=== PATIENT | female | born 1965 | race African-American/Black ===

== ENCOUNTER → 2016-10-22 | Outpatient (CLI) | payer MEDICARE, MEDICAID ==
[~2016-10-22] MED LIST: ACTO15TA11 PO; ACYC-101 PO; ADVA100A INH; AMBI10TA PO; CABE0.5T PO; CALC600T13 PO; FOLI5CAP PO; HYDR200T3 PO; PRIL20CA9 PO; SPIRCAP INH; TRAZ100T4 PO; TRAZ100T6 PO; URSO250T2 PO; VENTAER INH; [UNRECOGNIZED DRUG - CODE]
[2016-10-22 16:40] LABS: HEMOGLOBIN A1b 0.9 %; HEMOGLOBIN Ao 85.7 %; HEMOGLOBIN F 0.8 %; HEMOGLOBIN LA1C 1.9 %; HEMOGLOBIN P3 3.7 %
== END ==
LOC: CLAB 12:22
PROVIDERS: ATTEND Family Medicine
DX: E11.9 Type 2 diabetes mellitus without complications (principal)
CPT/HCPCS: 36415; 83036

== ENCOUNTER → 2016-10-29 | Outpatient (CLI) | payer MEDICARE, MEDICAID ==
[2016-10-29 09:45] LABS: BASOPHIL # 0.1 TH/MM3 (0-0.2); BASOPHIL % 0.9 % (0.0-2.0); EOSINOPHIL # 0.1 TH/MM3 (0-0.4); EOSINOPHIL % 1.9 % (0.0-4.0); HEMATOCRIT 38.7 % (35.0-46.0); HEMO FLAGS DIFF FINAL; LYMPH % 39.1 % (9.0-44.0); LYMPHOCYTE # 2.2 TH/MM3 (1.0-4.8); MEAN CELL VOLUME 91.1 FL (80.0-100.0); MEAN CORPUSCULAR HEMOGLOBIN 30.2 PG (27.0-34.0); MEAN CORPUSCULAR HGB CONC 33.1 % (32.0-36.0); NEUT % 54.1 % (16.0-70.0); PLATELET COUNT 253 TH/MM3 (150-450); RED BLOOD COUNT 4.25 MIL/MM3 (4.00-5.30); RED CELL DISTRIBUTION WIDTH 13.9 % (11.6-17.2); WHITE BLOOD COUNT 5.5 TH/MM3 (4.0-11.0)
[2016-10-29 10:24] LABS: ALKALINE PHOSPHATASE 81 U/L (45-117); ALT (GPT) 17 U/L (10-53); ANION GAP 5 MEQ/L (5-15); AST (GOT) 17 U/L (15-37); BICARBONATE 28.7 MEQ/L (21.0-32.0); BLOOD UREA NITROGEN 14 MG/DL (7-18); CHLORIDE 106 MEQ/L (98-107); GLOMERULAR FILTRATION RATE 62 ML/MIN (>89); GLUCOSE,FASTING 71 MG/DL (74-99); POTASSIUM 3.9 MEQ/L (3.5-5.1); SODIUM (NA) 140 MEQ/L (136-145); TOTAL BILIRUBIN ADULT 0.2 MG/DL (0.2-1.0)
[2016-10-29 10:24] LABS: WESTERGREN SEDIMENTATION RATE 42 mm/hr (0-30)
== END ==
LOC: CLAB 08:54
PROVIDERS: ATTEND Allergy & Immunology
DX: D84.9 Immunodeficiency, unspecified (principal); Z79.899 Other long term (current) drug therapy
CPT/HCPCS: 36415; 80053; 85025; 85652; 86140

== ENCOUNTER → 2016-11-16 | Outpatient (CLI) | payer MEDICARE, MEDICAID ==
[2016-11-16 11:36] LABS: ALT (GPT) 17 U/L (10-53); ANION GAP 7 MEQ/L (5-15); AST (GOT) 9 U/L (15-37); BICARBONATE 26.7 MEQ/L (21.0-32.0); BLOOD UREA NITROGEN 8 MG/DL (7-18); CHLORIDE 107 MEQ/L (98-107); GLOMERULAR FILTRATION RATE 84 ML/MIN (>89); GLUCOSE,FASTING 87 MG/DL (74-99); POTASSIUM 3.6 MEQ/L (3.5-5.1); SODIUM (NA) 141 MEQ/L (136-145)
[2016-11-16 11:46] LABS: ALKALINE PHOSPHATASE 76 U/L (45-117); TOTAL BILIRUBIN ADULT 0.2 MG/DL (0.2-1.0)
== END ==
LOC: CLAB 10:51
PROVIDERS: ATTEND Family Medicine
DX: E22.1 Hyperprolactinemia (principal); E04.1 Nontoxic single thyroid nodule
CPT/HCPCS: 36415; 80053; 84146; 84443

== ENCOUNTER → 2017-04-14 | Outpatient (CLI) | payer MEDICARE, MEDICAID ==
[~2017-04-14] MED LIST changes: +OMEP20CA2 PO; -PRIL20CA9 PO; -TRAZ100T4 PO
[2017-04-14 10:28] LABS: AUTOMATED NEUTROPHIL # 2.8 TH/MM3 (1.8-7.7); BASOPHIL % 0.7 % (0.0-2.0); EOSINOPHIL # 0.1 TH/MM3 (0-0.4); EOSINOPHIL % 1.8 % (0.0-4.0); HEMATOCRIT 38.6 % (35.0-46.0); HEMO FLAGS DIFF FINAL; LYMPH % 45.5 % (9.0-44.0); LYMPHOCYTE # 2.6 TH/MM3 (1.0-4.8); MEAN CELL VOLUME 89.7 FL (80.0-100.0); MEAN CORPUSCULAR HEMOGLOBIN 29.8 PG (27.0-34.0); MEAN CORPUSCULAR HGB CONC 33.2 % (32.0-36.0); MONO % 3.8 % (0.0-8.0); NEUT % 48.2 % (16.0-70.0); PLATELET COUNT 268 TH/MM3 (150-450); RED CELL DISTRIBUTION WIDTH 13.6 % (11.6-17.2); WHITE BLOOD COUNT 5.8 TH/MM3 (4.0-11.0)
[2017-04-14 10:47] LABS: ANION GAP 8 MEQ/L (5-15); AST (GOT) 9 U/L (15-37); BICARBONATE 26.3 MEQ/L (21.0-32.0); BLOOD UREA NITROGEN 13 MG/DL (7-18); CHLORIDE 108 MEQ/L (98-107); GLOMERULAR FILTRATION RATE 97 ML/MIN (>89); GLUCOSE,FASTING 96 MG/DL (74-99); POTASSIUM 3.7 MEQ/L (3.5-5.1); SODIUM (NA) 142 MEQ/L (136-145)
[2017-04-14 10:51] LABS: ALKALINE PHOSPHATASE 75 U/L (45-117); ALT (GPT) 19 U/L (10-53); TOTAL BILIRUBIN ADULT 0.3 MG/DL (0.2-1.0)
== END ==
LOC: CLAB 09:56
PROVIDERS: ATTEND Internal Medicine Gastroenterology
DX: K74.3 Primary biliary cirrhosis (principal)
CPT/HCPCS: 36415; 80053; 85025

== ENCOUNTER → 2017-04-26 | Outpatient (CLI) | payer MEDICARE, MEDICAID ==
[2017-04-26 11:02] LABS: AUTOMATED NEUTROPHIL # 3.8 TH/MM3 (1.8-7.7); BASOPHIL % 0.7 % (0.0-2.0); EOSINOPHIL # 0.1 TH/MM3 (0-0.4); EOSINOPHIL % 1.3 % (0.0-4.0); HEMATOCRIT 37.7 % (35.0-46.0); HEMO FLAGS DIFF FINAL; LYMPH % 34.2 % (9.0-44.0); LYMPHOCYTE # 2.2 TH/MM3 (1.0-4.8); MEAN CELL VOLUME 91.1 FL (80.0-100.0); MEAN CORPUSCULAR HEMOGLOBIN 30.4 PG (27.0-34.0); MEAN CORPUSCULAR HGB CONC 33.3 % (32.0-36.0); NEUT % 59.8 % (16.0-70.0); PLATELET COUNT 248 TH/MM3 (150-450); RED BLOOD COUNT 4.14 MIL/MM3 (4.00-5.30); RED CELL DISTRIBUTION WIDTH 13.8 % (11.6-17.2); WHITE BLOOD COUNT 6.4 TH/MM3 (4.0-11.0)
[2017-04-26 11:26] LABS: ANION GAP 5 MEQ/L (5-15); AST (GOT) 12 U/L (15-37); BICARBONATE 27.7 MEQ/L (21.0-32.0); BLOOD UREA NITROGEN 9 MG/DL (7-18); CHLORIDE 106 MEQ/L (98-107); GLOMERULAR FILTRATION RATE 91 ML/MIN (>89); GLUCOSE,FASTING 97 MG/DL (74-99); POTASSIUM 3.4 MEQ/L (3.5-5.1); SODIUM (NA) 139 MEQ/L (136-145)
[2017-04-26 11:29] LABS: ALKALINE PHOSPHATASE 80 U/L (45-117); ALT (GPT) 21 U/L (10-53); TOTAL BILIRUBIN ADULT 0.3 MG/DL (0.2-1.0)
[2017-04-26 12:51] LABS: WESTERGREN SEDIMENTATION RATE 28 mm/hr (0-30)
[2017-04-28 13:02] LABS: ANA SCREEN POS (NEG)
== END ==
LOC: CLAB 10:29
PROVIDERS: ATTEND Allergy & Immunology
DX: R76.8 Other specified abnormal immunological findings in serum (principal); D82.8 Immunodeficiency associated with other specified major defects
CPT/HCPCS: 36415; 80053; 85025; 85652; 86038; 86039; 86140; 86225

== ENCOUNTER 2017-05-22 14:57 | Emergency (ER) | payer MEDICARE, MEDICAID ==
[~2017-05-22] VITALS: Ht 175.3 cm; Wt 100.0 kg
[2017-05-22 15:10] VITALS: BP 145/67; PULSE 84; RESP 15; TEMP 98.4; O2SAT 98
[2017-05-22] MEDS ORDERED: MORPHINE SULFATE 4 MG/ML INJ IV PUSH ONE (15:30)
[2017-05-22] MEDS ORDERED: ONDANSETRON HCL 4 MG/2 ML VIAL IV PUSH ONE (15:30)
--- NOTE | 2017-05-22 16:12 | RADRPT ---
EXAM DATE/TIME: 05/22/2017 15:51 [facility] COMPARISON: No previous studies available for comparison. INDICATIONS : Pain from impact to ribs by chair arm. MEDICAL HISTORY : None. SURGICAL HISTORY : None. ENCOUNTER: Initial ACUITY: 1 week PAIN SCORE: 9/10 LOCATION: Slightly lateral of left chest below sternum. FINDINGS: No definite displaced rib fractures or pneumothorax is identified. CONCLUSION: No definite displaced rib fractures. Sesar Glynn MD on May 22, 2017 at 16:10 Board Certified Radiologist. This report was verified electronically.
[2017-05-22] MEDS ORDERED: MORPHINE SULFATE 8 MG/ML INJ IM ONE (16:30)
--- NOTE | 2017-05-22 16:57 | PD ---
HPI Chief Complaint: Abdominal Pain Time Seen by Provider: 15:14 Travel History International Travel<30 days: No Contact w/Intl Traveler<30days: No Traveled to known affect area: No History of Present Illness HPI Patient is a 52-year-old female who comes in complaining of left-sided lower rib pain for the past few days. She says that it started after she fell into the post of a chair. She says she was feeling okay within the pain got worse yesterday. She has it hurts to touch the area. She denies any shortness of breath. She has not taken anything for pain. She denies nausea or vomiting. She denies fever or chills. PFSH Past Medical History Anemia: Yes Arthritis: Yes Asthma: No Autoimmune Disease: No Blood Disorders: No Anxiety: Yes Depression: No Heart Rhythm Problems: No Cancer: No Cardiovascular Problems: Yes High Cholesterol: Yes Chest Pain: Yes Congestive Heart Failure: No Cirrhosis: Yes COPD: Yes Cerebrovascular Accident: No Diabetes: No Diminished Hearing: Yes (LT. 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) Hiatal Hernia: No Hypertension: No Immune Disorder: No Kidney Stones: No Musculoskeletal: Yes (R HIP REPL) Neurologic: Yes (BRAIN SURGERY) Psychiatric: No Reproductive: No Respiratory: Yes Immunizations Current: No Myocardial Infarction: No Renal Failure: No Seizures: No Sickle Cell Disease: No Sleep Apnea: No Thyroid Disease: Yes Ulcer: Yes (GASTRIC) Influenza Vaccination: Yes ?: Not Menopausal: Yes Tubal Ligation: Yes Past Surgical History Abdominal Surgery: Yes (TUBAL,1990) AICD: No Cardiac Surgery: No Ear Surgery: No Endocrine Surgery: No Eye Surgery: No Genitourinary Surgery: No Gynecologic Surgery: No Joint Replacement: Yes (RIGHT HIP 12/07, LET HIP 06/09) Neurologic Surgery: Yes (BRAIN TUMOR/SURGERY IN 2000) Oral Surgery: No Pacemaker: No Thoracic Surgery: No Other Surgery: Yes (RIGHT HIP REPLACEMENT,10/14/05,TUBAL 1990,BRAIN SURGERY( TUMOR),2001) Social History Alcohol Use: No Tobacco Use: No Substance Use: No Allergies-Medications (Allergen,Severity, Reaction): Coded Allergies: No Known Allergies (Verified , 05/22/17) Reported Meds & Prescriptions Reported Meds & Active Scripts Active Tramadol (Tramadol HCl) 50 Mg Tab 50 Mg PO Q6H PRN Ambien (Zolpidem Tartrate) 10 Mg Tab 10 Mg PO HS PRN Trazodone (Trazodone HCl) 100 Mg Tablet 250 Mg PO HS Take two and a half tablets at bedtime for insomnia. Reported Diclofenac Topical 1% Gel 1 Applic TOPICAL BID Folic Acid 1 Mg Tablet 1 Mg PO DAILY Dede 250 (Ursodiol) 250 Mg Tab 500 Mg PO BID Spiriva Handihaler (Tiotropium Inh) 18 Mcg Cap 18 Mcg INH DAILY 1 capsule = 18 mcg Review of Systems Except as stated in HPI: all other systems reviewed are Neg General / Constitutional: No: Fever, Chills HENT: No: Headaches, Lightheadedness Cardiovascular: Positive: Chest Pain or Discomfort Respiratory: No: Shortness of Breath Gastrointestinal: No: Nausea, Vomiting Musculoskeletal: Positive: Pain, No: Myalgias Skin: No Rash, No Itching Neurologic: No: Weakness, Dizziness Physical Exam Narrative GENERAL: Awake and alert, in no acute distress. SKIN: Focused skin assessment warm/dry. HEAD: Atraumatic. Normocephalic. EYES: Pupils equal and round. No scleral icterus. ENT: Mucous membranes pink and moist. NECK: Trachea midline. No JVD. CARDIOVASCULAR: Regular rate and rhythm. No murmur appreciated. Tender to palpation just under the left breast on the rib. RESPIRATORY: No accessory muscle use. Clear to auscultation. Breath sounds equal bilaterally. GASTROINTESTINAL: Abdomen soft, nondistended. Minimal tenderness to the epigastric area. No rebound or guarding. MUSCULOSKELETAL: No obvious deformities. No clubbing. No cyanosis. No edema. NEUROLOGICAL: Awake and alert. No obvious cranial nerve deficits. Motor grossly within normal limits. Normal speech. PSYCHIATRIC: Appropriate mood and affect; insight and judgment normal. Data Data Last Documented VS Vital Signs Date Time Temp Pulse Resp B/P Pulse Ox O2 Delivery O2 Flow Rate FiO2 05/22/17 15:10 98.4 84 15 145/67 98 Orders Iv Access Insert/Monitor (05/22/17 15:23) Complete Blood Count With Diff (05/22/17 15:23) Hepatic Functional Panel (05/22/17 15:23) Basic Metabolic Panel (Bmp) (05/22/17 15:23) Lipase (05/22/17 15:23) Ribs, Uni (W/Exp Cxr-Min 3vw) (05/22/17 ) Morphine Inj (Morphine Inj) (05/22/17 15:30) Ondansetron Inj (Zofran Inj) (05/22/17 15:30) Morphine Inj (Morphine Inj) (05/22/17 16:30) Electrocardiogram (05/22/17 ) Troponin I (05/22/17 16:48) Tramadol (Ultram) (05/22/17 18:15) Labs Laboratory Tests Test 05/22/17 16:40 White Blood Count 10.2 TH/MM3 Red Blood Count 4.27 MIL/MM3 Hemoglobin 13.2 GM/DL Hematocrit 39.1 % Mean Corpuscular Volume 91.6 FL Mean Corpuscular Hemoglobin 30.9 PG Mean Corpuscular Hemoglobin 33.7 % Concent Red Cell Distribution Width 13.6 % Platelet Count 306 TH/MM3 Mean Platelet Volume 8.1 FL Neutrophils (%) (Auto) 62.4 % Lymphocytes (%) (Auto) 31.9 % Monocytes (%) (Auto) 4.3 % Eosinophils (%) (Auto) 0.5 % Basophils (%) (Auto) 0.9 % Neutrophils # (Auto) 6.4 TH/MM3 Lymphocytes # (Auto) 3.3 TH/MM3 Monocytes # (Auto) 0.4 TH/MM3 Eosinophils # (Auto) 0.0 TH/MM3 Basophils # (Auto) 0.1 TH/MM3 CBC Comment DIFF FINAL Differential Comment Sodium Level 138 MEQ/L Potassium Level 3.4 MEQ/L Chloride Level 105 MEQ/L Carbon Dioxide Level 27.1 MEQ/L Anion Gap 6 MEQ/L Blood Urea Nitrogen 11 MG/DL Creatinine 0.93 MG/DL Estimat Glomerular Filtration 76 ML/MIN Rate Random Glucose 87 MG/DL Calcium Level 7.5 MG/DL Total Bilirubin 0.1 MG/DL Direct Bilirubin 0.1 MG/DL Indirect Bilirubin 0.0 MG/DL Aspartate Amino Transf 10 U/L (AST/SGOT) Alanine Aminotransferase 16 U/L (ALT/SGPT) Alkaline Phosphatase 83 U/L Troponin I LESS THAN 0.02 NG/ML Total Protein 7.8 GM/DL Albumin 3.5 GM/DL Lipase 122 U/L [facility] [place] Medical Decision Making Medical Screen Exam Complete: Yes Emergency Medical Condition: Yes Differential Diagnosis Rib fracture versus contusion versus gastritis Narrative Course Patient is a 52-year-old female comes in complaining of left-sided chest wall pain. She says it occurred after she fell onto the post of a chair. Exam shows tenderness to the left rib under her left breast. IV established while labs sent. Patient given pain medicine. Chest x-ray and rib series performed shows no evidence of displaced rib fracture. Patient signed out to Dr. Frankel to follow up testing and disposition the patient appropriately. Scripts Tramadol 50 Mg Tab50 Mg PO Q6H PRN (PAIN) #20 TAB Ref 0 Prov:Rah Frankel MD 05/22/17 Condition: Stable Linda Akhtar MD May 22, 2017 16:57
[2017-05-22 17:01] LABS: AUTOMATED NEUTROPHIL # 6.4 TH/MM3 (1.8-7.7); BASOPHIL # 0.1 TH/MM3 (0-0.2); BASOPHIL % 0.9 % (0.0-2.0); EOSINOPHIL % 0.5 % (0.0-4.0); HEMATOCRIT 39.1 % (35.0-46.0); HEMO FLAGS DIFF FINAL; LYMPH % 31.9 % (9.0-44.0); LYMPHOCYTE # 3.3 TH/MM3 (1.0-4.8); MEAN CELL VOLUME 91.6 FL (80.0-100.0); MEAN CORPUSCULAR HEMOGLOBIN 30.9 PG (27.0-34.0); MEAN CORPUSCULAR HGB CONC 33.7 % (32.0-36.0); MONO % 4.3 % (0.0-8.0); NEUT % 62.4 % (16.0-70.0); PLATELET COUNT 306 TH/MM3 (150-450); RED BLOOD COUNT 4.27 MIL/MM3 (4.00-5.30); RED CELL DISTRIBUTION WIDTH 13.6 % (11.6-17.2); WHITE BLOOD COUNT 10.2 TH/MM3 (4.0-11.0)
[2017-05-22] MEDS ORDERED: DICL1GEL7 TOPICAL (17:11)
[2017-05-22] MEDS ORDERED: FOLI1TAB6 PO (17:11)
[2017-05-22 17:27] LABS: BICARBONATE 27.1 MEQ/L (21.0-32.0); POTASSIUM 3.4 MEQ/L (3.5-5.1)
[2017-05-22 17:30] LABS: TOTAL BILIRUBIN ADULT 0.1 MG/DL (0.2-1.0)
[2017-05-22] MEDS ORDERED: TRAM50TA PO (18:15)
[2017-05-22] MEDS ORDERED: traMADol HCL 50 MG TAB PO ONE (18:15)
--- NOTE | 2017-05-22 18:17 | PD ---
Data Data Last Documented VS Vital Signs Date Time Temp Pulse Resp B/P Pulse Ox O2 Delivery O2 Flow Rate FiO2 05/22/17 15:10 98.4 84 15 145/67 98 Orders Iv Access Insert/Monitor (05/22/17 15:23) Complete Blood Count With Diff (05/22/17 15:23) Hepatic Functional Panel (05/22/17 15:23) Basic Metabolic Panel (Bmp) (05/22/17 15:23) Lipase (05/22/17 15:23) Ribs, Uni (W/Exp Cxr-Min 3vw) (05/22/17 ) Morphine Inj (Morphine Inj) (05/22/17 15:30) Ondansetron Inj (Zofran Inj) (05/22/17 15:30) Morphine Inj (Morphine Inj) (05/22/17 16:30) Electrocardiogram (05/22/17 ) Troponin I (05/22/17 16:48) Tramadol (Ultram) (05/22/17 18:15) Labs Laboratory Tests Test 05/22/17 16:40 White Blood Count 10.2 TH/MM3 Red Blood Count 4.27 MIL/MM3 Hemoglobin 13.2 GM/DL Hematocrit 39.1 % Mean Corpuscular Volume 91.6 FL Mean Corpuscular Hemoglobin 30.9 PG Mean Corpuscular Hemoglobin 33.7 % Concent Red Cell Distribution Width 13.6 % Platelet Count 306 TH/MM3 Mean Platelet Volume 8.1 FL Neutrophils (%) (Auto) 62.4 % Lymphocytes (%) (Auto) 31.9 % Monocytes (%) (Auto) 4.3 % Eosinophils (%) (Auto) 0.5 % Basophils (%) (Auto) 0.9 % Neutrophils # (Auto) 6.4 TH/MM3 Lymphocytes # (Auto) 3.3 TH/MM3 Monocytes # (Auto) 0.4 TH/MM3 Eosinophils # (Auto) 0.0 TH/MM3 Basophils # (Auto) 0.1 TH/MM3 CBC Comment DIFF FINAL Differential Comment Sodium Level 138 MEQ/L Potassium Level 3.4 MEQ/L Chloride Level 105 MEQ/L Carbon Dioxide Level 27.1 MEQ/L Anion Gap 6 MEQ/L Blood Urea Nitrogen 11 MG/DL Creatinine 0.93 MG/DL Estimat Glomerular Filtration 76 ML/MIN Rate Random Glucose 87 MG/DL Calcium Level 7.5 MG/DL Total Bilirubin 0.1 MG/DL Direct Bilirubin 0.1 MG/DL Indirect Bilirubin 0.0 MG/DL Aspartate Amino Transf 10 U/L (AST/SGOT) Alanine Aminotransferase 16 U/L (ALT/SGPT) Alkaline Phosphatase 83 U/L Troponin I LESS THAN 0.02 NG/ML Total Protein 7.8 GM/DL Albumin 3.5 GM/DL Lipase 122 U/L [facility] Supervised Visit with VIRY: No Narrative Course Case checked out to be by Dr. Vela at 5 PM. I reevaluated the patient and reviewed the entirety of the results with her CBC and metabolic studies and LFTs and troponin all normal I reviewed her x-rays which showed no rib fracture or pneumothorax Dr. Vela recommended discharge if the labs were normal. I gave her a tramadol dose now and prescription for same Warned her about potential sedation and constipation The patient was advised to follow up with their physician and return if they worsen. Diagnosis Primary Impression: Rib pain Additional Instruction: The patient was advised to follow up with their physician and return if they worsen. The patient was warned about potential sedation for the medications they will receive on prescription. Med/Other Pt SpecificInfo: Prescription(s) given Scripts Tramadol 50 Mg Tab50 Mg PO Q6H PRN (PAIN) #20 TAB Ref 0 Prov:Rah Frankel MD 05/22/17 Disposition: 01 DISCHARGE HOME Condition: Stable Rah Frankel MD May 22, 2017 18:17
--- NOTE | 2017-05-23 15:24 | EKG ---
Date Performed: 05/22/2017 Time Performed: 16:57:42 PTAGE: 52 years EKG: Sinus rhythm NORMAL ECG Since PREVIOUS TRACING , no significant change noted PREVIOUS TRACIN08/29/2014 13.15 DOCTOR: Roosevelt Portillo Interpretating Date/Time 05/23/2017 15:22:45
[2017-07-01] MEDS ORDERED: HYDR200T3 PO (16:15)
[2017-07-01] MEDS ORDERED: ACYC800T PO (16:15)
== END 2017-05-22 19:03 | disposition home or self-care (01) ==
LOC: NEPD 14:57
DX: R07.81 Pleurodynia (principal); W18.39XA Other fall on same level, initial encounter
CPT/HCPCS: 71101; 80048; 80076; 83690; 84484; 85025; 93005; 96372; 99285; J2270

== ENCOUNTER → 2017-06-02 | Outpatient (CLI) | payer MEDICARE, MEDICAID ==
[~2017-06-02] MED LIST changes: -ACTO15TA11 PO; -ACYC-101 PO; +ACYC800T PO; -ADVA100A INH; -CABE0.5T PO; -CALC600T13 PO; +DICL1GEL7 TOPICAL; +FOLI1TAB6 PO; -FOLI5CAP PO; -OMEP20CA2 PO; +TRAM50TA PO; -VENTAER INH; -[UNRECOGNIZED DRUG - CODE]
[2017-06-02 09:51] LABS: ALT (GPT) 19 U/L (10-53)
[2017-06-02 09:55] LABS: ANION GAP 8 MEQ/L (5-15); AST (GOT) 22 U/L (15-37); BICARBONATE 28.3 MEQ/L (21.0-32.0); BLOOD UREA NITROGEN 8 MG/DL (7-18); CHLORIDE 104 MEQ/L (98-107); GLOMERULAR FILTRATION RATE 85 ML/MIN (>89); GLUCOSE,FASTING 98 MG/DL (74-99); POTASSIUM 3.8 MEQ/L (3.5-5.1); SODIUM (NA) 140 MEQ/L (136-145)
[2017-06-02 10:01] LABS: ALKALINE PHOSPHATASE 89 U/L (45-117); TOTAL BILIRUBIN ADULT 0.3 MG/DL (0.2-1.0)
[2017-06-02 10:23] LABS: HEMOGLOBIN A1b 0.9 %; HEMOGLOBIN Ao 85.4 %; HEMOGLOBIN F 0.9 %; HEMOGLOBIN LA1C 1.9 %; HEMOGLOBIN P3 3.6 %
== END ==
LOC: CLAB 08:47
PROVIDERS: ATTEND Internal Medicine Endocrinology, Diabetes & Metabolism
DX: E22.1 Hyperprolactinemia (principal); R73.01 Impaired fasting glucose
CPT/HCPCS: 36415; 80053; 83036; 84146; 84443

== ENCOUNTER → 2017-06-29 | Outpatient (CLI) | payer MEDICARE, MEDICAID ==
[2017-06-29 13:09] LABS: AUTOMATED NEUTROPHIL # 3.1 TH/MM3 (1.8-7.7); BASOPHIL % 0.7 % (0.0-2.0); EOSINOPHIL # 0.1 TH/MM3 (0-0.4); EOSINOPHIL % 1.1 % (0.0-4.0); HEMATOCRIT 38.1 % (35.0-46.0); HEMO FLAGS DIFF FINAL; LYMPH % 40.8 % (9.0-44.0); LYMPHOCYTE # 2.3 TH/MM3 (1.0-4.8); MEAN CELL VOLUME 91.1 FL (80.0-100.0); MEAN CORPUSCULAR HEMOGLOBIN 30.8 PG (27.0-34.0); MEAN CORPUSCULAR HGB CONC 33.8 % (32.0-36.0); NEUT % 54.4 % (16.0-70.0); PLATELET COUNT 287 TH/MM3 (150-450); RED BLOOD COUNT 4.18 MIL/MM3 (4.00-5.30); RED CELL DISTRIBUTION WIDTH 13.4 % (11.6-17.2); WHITE BLOOD COUNT 5.7 TH/MM3 (4.0-11.0)
[2017-06-29 13:21] LABS: PROTHROMBIN TIME - PATIENT 10.6 SEC (9.8-11.6)
[2017-06-29 13:33] LABS: BICARBONATE 29.8 MEQ/L (21.0-32.0); POTASSIUM 3.4 MEQ/L (3.5-5.1)
== END ==
LOC: CLAB 12:46
PROVIDERS: ATTEND Podiatrist Foot & Ankle Surgery
DX: M72.2 Plantar fascial fibromatosis (principal); D68.9 Coagulation defect, unspecified
CPT/HCPCS: 36415; 80048; 85025; 85610; 85730

== ENCOUNTER → 2017-08-04 | Outpatient (CLI) | payer MEDICARE, MEDICAID ==
[2017-08-04 09:55] LABS: AUTOMATED NEUTROPHIL # 3.5 TH/MM3 (1.8-7.7); BASOPHIL % 0.8 % (0.0-2.0); EOSINOPHIL # 0.1 TH/MM3 (0-0.4); EOSINOPHIL % 1.1 % (0.0-4.0); HEMOGLOBIN 12.7 GM/DL (11.6-15.3); LYMPHOCYTE # 2.5 TH/MM3 (1.0-4.8); MEAN CELL VOLUME 92.1 FL (80.0-100.0); MEAN CORPUSCULAR HEMOGLOBIN 30.9 PG (27.0-34.0); MEAN CORPUSCULAR HGB CONC 33.6 % (32.0-36.0); MEAN PLATELET VOLUME 7.8 FL (7.0-11.0); MONO % 3.9 % (0.0-8.0); MONOCYTE # 0.2 TH/MM3 (0-0.9); NEUT % 55.2 % (16.0-70.0); PLATELET COUNT 269 TH/MM3 (150-450); RED BLOOD COUNT 4.12 MIL/MM3 (4.00-5.30); RED CELL DISTRIBUTION WIDTH 13.5 % (11.6-17.2); WHITE BLOOD COUNT 6.4 TH/MM3 (4.0-11.0)
[2017-08-04 10:45] LABS: ALBUMIN 3.3 GM/DL (3.4-5.0); AST (GOT) 12 U/L (15-37); BLOOD UREA NITROGEN 8 MG/DL (7-18); CALCIUM 8.4 MG/DL (8.5-10.1); CHLORIDE 104 MEQ/L (98-107); CREATININE 0.82 MG/DL (0.50-1.00); GLOMERULAR FILTRATION RATE 88 ML/MIN (>89); GLUCOSE,FASTING 95 MG/DL (74-99); SODIUM (NA) 140 MEQ/L (136-145)
[2017-08-04 10:47] LABS: ALT (GPT) 17 U/L (10-53)
[2017-08-04 10:48] LABS: ALKALINE PHOSPHATASE 82 U/L (45-117); TOTAL BILIRUBIN ADULT 0.2 MG/DL (0.2-1.0); TOTAL PROTEIN 7.4 GM/DL (6.4-8.2)
[2017-08-06 13:53] LABS: SJOGRENS ANTIBODY SS-A >8.0 POS AI (<1.0 NEGATIVE); SJOGRENS ANTIBODY SS-B <1.0 NEG AI (<1.0 NEGATIVE)
[2017-08-06 14:37] LABS: ANA SCREEN POS (NEG)
[2017-08-09 13:00] LABS: ANA PATTERN DIFFUSE
== END ==
LOC: CLAB 09:16
PROVIDERS: ATTEND Allergy & Immunology
DX: R76.8 Other specified abnormal immunological findings in serum (principal); R79.82 Elevated C-reactive protein (CRP)
CPT/HCPCS: 36415; 80053; 85025; 86038; 86039; 86140; 86235

== ENCOUNTER → 2017-08-18 | Outpatient (CLI) | payer MEDICARE, MEDICAID ==
[~2017-08-18] MED LIST changes: +TRAZ100T10 PO; -TRAZ100T6 PO
[2017-08-18 12:14] LABS: TOTAL BILIRUBIN ADULT 0.1 MG/DL (0.2-1.0)
== END ==
LOC: CLAB 11:31
PROVIDERS: ATTEND Internal Medicine Gastroenterology
DX: K74.60 Unspecified cirrhosis of liver (principal)
CPT/HCPCS: 36415; 80076; 82105

== ENCOUNTER → 2017-11-08 | Outpatient (CLI) | payer MEDICARE | LOC: HRSP 12:12 | PROVIDERS: ATTEND Internal Medicine | DX: J44.9 Chronic obstructive pulmonary disease, unspecified (principal); R06.02 Shortness of breath | CPT/HCPCS: 94060; 94618; 94726; 94729 ==

== ENCOUNTER → 2017-11-29 | Outpatient (CLI) | payer MEDICARE ==
[~2017-11-29] MED LIST changes: +ADVA250A INH; +CALC1TAB87 PO; +OMEP20TA93 PO; +PRED20 PO
[2017-11-29 10:41] LABS: ALBUMIN 3.4 GM/DL (3.4-5.0); AST (GOT) 10 U/L (15-37); BICARBONATE 29.1 MEQ/L (21.0-32.0); BLOOD UREA NITROGEN 11 MG/DL (7-18); CALCIUM 8.8 MG/DL (8.5-10.1); CHLORIDE 106 MEQ/L (98-107); CREATININE 0.76 MG/DL (0.50-1.00); GLOMERULAR FILTRATION RATE 96 ML/MIN (>89); GLUCOSE,FASTING 92 MG/DL (74-99); SODIUM (NA) 141 MEQ/L (136-145)
[2017-11-29 10:52] LABS: ALKALINE PHOSPHATASE 85 U/L (45-117); ALT (GPT) 14 U/L (10-53); FREE T4 0.93 NG/DL (0.76-1.46); TOTAL BILIRUBIN ADULT 0.2 MG/DL (0.2-1.0); TOTAL PROTEIN 7.5 GM/DL (6.4-8.2)
[2017-11-29 16:34] LABS: HEMOGLOBIN A1C 5.6 % (4.3-6.0)
== END ==
LOC: CLAB 09:32
DX: E22.1 Hyperprolactinemia (principal); R73.01 Impaired fasting glucose; E04.1 Nontoxic single thyroid nodule
CPT/HCPCS: 36415; 80053; 83036; 84146; 84439; 84443

== ENCOUNTER 2017-12-01 11:25 | Emergency (ER) | payer MEDICAID, MEDICARE ==
[~2017-12-01] VITALS: Ht 175.3 cm; Wt 96.0 kg
[~2017-12-01 11:25] MED LIST changes: -ADVA250A INH; -CALC1TAB87 PO; -OMEP20TA93 PO; -PRED20 PO
[2017-12-01 11:38] VITALS: BP 134/68; PULSE 87; RESP 17; TEMP 98.1; O2SAT 98
[2017-12-01] MEDS ORDERED: traMADol HCL 50 MG TAB PO ONE (12:00)
[2017-12-01] MEDS ORDERED: predniSONE 20 MG TAB PO ONE (12:00)
[2017-12-01] MEDS ORDERED: ADVA250A INH (12:16)
[2017-12-01] MEDS ORDERED: CALC1TAB87 PO (12:16)
[2017-12-01] MEDS ORDERED: OMEP20TA93 PO (12:16)
--- NOTE | 2017-12-01 12:34 | RADRPT ---
EXAM DATE/TIME: 12/01/2017 11:56 [facility] COMPARISON: RIBS LEFT(W PA CXR MIN 3VWS), May 22, 2017, 15:51. INDICATIONS : Left shoulder pain, no injury. MEDICAL HISTORY : None. SURGICAL HISTORY : None. ENCOUNTER: Initial ACUITY: 1 day PAIN SCORE: 10/10 LOCATION: Left proximal shoulder FINDINGS: Multiple view examination of the left shoulder demonstrates significant arthropathy of the acromiocla vicular joint. There is marginal irregularity along the articulating surface and marginal spurring. T his appearance was noted on previous study at 2017. Glenohumeral joint is intact. There is no evidence of acute fracture or dislocation. CONCLUSION: Chronic arthropathy of the left acromioclavicular joint. Otherwise intact left shoulder joint without evidence of acute process. Khoa Batista MD on December 01, 2017 at 12:29 Board Certified Radiologist. This report was verified electronically.
--- NOTE | 2017-12-01 12:36 | PD ---
HPI Chief Complaint: Musculoskeletal Complaint Time Seen by Provider: 11:43 Travel History International Travel<30 days: No Contact w/Intl Traveler<30days: No Traveled to known affect area: No History of Present Illness HPI 52-year-old -[place] left-handed female presents emergency department with worsening left shoulder pain in the last 2 days. Patient has history of recurrent shoulder pain in the past with workup done here in 2016. Patient states she was also workup at [facility], and had steroid injections with some temporary relief. Patient is left-handed, but denies any specific injury. Patient is able to move the shoulder but is painful in all ranges of motion. She denies numbness, tingling, or other symptoms. Patient has no chest pain or shortness of breath. Patient denies nausea, vomiting, or diarrhea. She has no fever or chills. Pain is worse with movement and palpation. She has no known drug allergies. PFSH Past Medical History Anemia: Yes Arthritis: Yes Asthma: No Autoimmune Disease: No Blood Disorders: No Anxiety: Yes Depression: No Heart Rhythm Problems: No Cancer: No Cardiovascular Problems: Yes High Cholesterol: Yes Chest Pain: Yes Congestive Heart Failure: No Cirrhosis: Yes COPD: Yes Cerebrovascular Accident: No Diabetes: No Diminished Hearing: Yes (LT. 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) Hiatal Hernia: No Hypertension: No Immune Disorder: No Kidney Stones: No Musculoskeletal: Yes (R HIP REPL) Neurologic: Yes (BRAIN SURGERY) Psychiatric: No Reproductive: No Respiratory: Yes Immunizations Current: No Myocardial Infarction: No Renal Failure: No Seizures: No Sickle Cell Disease: No Sleep Apnea: No Thyroid Disease: Yes Ulcer: Yes (GASTRIC) Tetanus Vaccination: Unknown Influenza Vaccination: Yes ?: Not Menopausal: Yes Tubal Ligation: Yes Past Surgical History Abdominal Surgery: Yes (TUBAL,1990) AICD: No Cardiac Surgery: No Ear Surgery: No Endocrine Surgery: No Eye Surgery: No Genitourinary Surgery: No Gynecologic Surgery: No Joint Replacement: Yes (RIGHT HIP 12/07, LET HIP 06/09) Neurologic Surgery: Yes (BRAIN TUMOR/SURGERY IN 2000) Oral Surgery: No Pacemaker: No Thoracic Surgery: No Other Surgery: Yes (RIGHT HIP REPLACEMENT,10/14/05,TUBAL 1990,BRAIN SURGERY( TUMOR),2001) Social History Alcohol Use: No Tobacco Use: No Substance Use: No Allergies-Medications (Allergen,Severity, Reaction): Coded Allergies: No Known Allergies (Verified Adverse Reaction, Unknown, 12/01/17) Reported Meds & Prescriptions Reported Meds & Active Scripts Active Acyclovir 800 Mg Tab 800 Mg PO TID Tramadol (Tramadol HCl) 50 Mg Tab 50 Mg PO Q6H PRN Ambien (Zolpidem Tartrate) 10 Mg Tab 10 Mg PO HS PRN Trazodone (Trazodone HCl) 100 Mg Tablet 250 Mg PO HS Take two and a half tablets at bedtime for insomnia. Reported Calcium 600 with Vitamin D (Calcium Carbonate-Cholecalciferol) 600-400 mg-Unit Tab 1 Tab PO DAILY Omeprazole 20 Mg Tab 20 Mg PO DAILY Advair Diskus Inh (Fluticasone-Salmeterol Inh) 250-50 Mcg/Blist Aer 1 Puff INH BID Rinse mouth after use. Hydroxychloroquine (Hydroxychloroquine Sulfate) 200 Mg Tab 200 Mg PO BID Takw with food Folic Acid 1 Mg Tablet 1 Mg PO DAILY Dede 250 (Ursodiol) 250 Mg Tab 500 Mg PO BID Spiriva Handihaler (Tiotropium Inh) 18 Mcg Cap 18 Mcg INH DAILY 1 capsule = 18 mcg Review of Systems Except as stated in HPI: all other systems reviewed are Neg General / Constitutional: No: Fever Eyes: No: Visual changes HENT: No: Headaches Cardiovascular: No: Chest Pain or Discomfort Respiratory: No: Shortness of Breath Gastrointestinal: No: Abdominal Pain Genitourinary: No: Dysuria Musculoskeletal: Positive: Arthralgias, Limited ROM, Pain Skin: No Rash Neurologic: No: Weakness Psychiatric: No: Depression Endocrine: No: Polydipsia Hematologic/Lymphatic: No: Easy Bruising Physical Exam Narrative GENERAL: Patient appears in mild distress. SKIN: Warm and dry. Normal color. Normal turgor. No rash. HEAD: Atraumatic. Normocephalic. EYES: Pupils equal and round. No scleral icterus. No injection or drainage. ENT: No nasal bleeding or discharge. Mucous membranes pink and moist. Pharynx clear. Airway patent NECK: Trachea midline. No bony tenderness or step-off. Range of motion is full and supple without tenderness per CARDIOVASCULAR: Regular rate and rhythm. RESPIRATORY: No accessory muscle use. Clear to auscultation. Breath sounds equal bilaterally. GASTROINTESTINAL: Abdomen soft, non-tender, nondistended. Hepatic and splenic margins not palpable. MUSCULOSKELETAL: Extremities without clubbing, cyanosis, or edema. No obvious deformities. Patient has full range of motion of the left shoulder with discomfort. No specific weakness is noted. No crepitus is noted with movement of the left shoulder. Pain is generalized and nonspecific. No weakness in the left upper extremity is noted NEUROLOGICAL: Awake and alert. No obvious cranial nerve deficits. Motor grossly within normal limits. Five out of 5 muscle strength in the arms and legs. Normal speech. PSYCHIATRIC: Appropriate mood and affect; insight and judgment normal. Data Data Last Documented VS Vital Signs Date Time Temp Pulse Resp B/P (MAP) Pulse Ox O2 Delivery O2 Flow Rate FiO2 12/01/17 11:38 98.1 87 17 134/68 (90) 98 Orders Orders Ice/Cold Pack (12/01/17 11:47) Prednisone (Deltasone) (12/01/17 12:00) Tramadol (Ultram) (12/01/17 12:00) Shoulder, Complete (>2vws) (12/01/17 ) [facility] Medical Decision Making Medical Screen Exam Complete: Yes Emergency Medical Condition: Yes Medical Record Reviewed: Yes Differential Diagnosis Left shoulder pain. Osteoarthritis. AC separation. Bursitis. Narrative Course Patient is medically stable at time of exam. X-ray of the left shoulder is ordered. Patient is given 40 mg prednisone p.o. as well as 50 mg tramadol p.o. X-ray showed: Chronic arthropathy of the left acromioclavicular joint. Otherwise intact left shoulder joint without evidence of acute process. Patient is continued on prednisone 40 mg twice daily 5 days. Patient is given tramadol 50 mg 1 every 6 hours as needed pain #20 Patient is to ice this and follow-up with primary care physician and possible orthopedic referral if symptoms persist. Diagnosis Primary Impression: Arthritis of left shoulder region Referrals: Orthopedist Primary Care Physician Patient Instructions: General Instructions, Osteoarthritis (ED) Additional Instructions: Patient is medically stable at time of exam. X-ray of the left shoulder is ordered. Patient is given 40 mg prednisone p.o. as well as 50 mg tramadol p.o. X-ray showed: Chronic arthropathy of the left acromioclavicular joint. Otherwise intact left shoulder joint without evidence of acute process. Patient is continued on prednisone 40 mg twice daily 5 days. Patient is given tramadol 50 mg 1 every 6 hours as needed pain #20 Patient is to ice this and follow-up with primary care physician and possible orthopedic referral if symptoms persist. Med/Other Pt SpecificInfo: Prescription(s) given Disposition: 01 DISCHARGE HOME Condition: Stable Hugh Condon Dec 01, 2017 12:36
[2017-12-01] MEDS ORDERED: TRAM50TA PO (12:37)
[2017-12-01] MEDS ORDERED: PRED20 PO (12:37)
[2017-12-02] MEDS ORDERED: CABE0.5T PO (18:39)
[2017-12-02] MEDS ORDERED: OMEP20TA93 PO (18:39)
== END 2017-12-01 13:00 | disposition home or self-care (01) ==
LOC: NEPD 11:25
DX: M19.012 Primary osteoarthritis, left shoulder (principal); E78.00 Pure hypercholesterolemia, unspecified; J44.9 Chronic obstructive pulmonary disease, unspecified
CPT/HCPCS: 73030; 99283; J7512

== ENCOUNTER 2017-12-02 17:32 | Emergency (ER) | payer MEDICAID, MEDICARE ==
[~2017-12-02] VITALS: Ht 175.3 cm; Wt 97.0 kg
[~2017-12-02 17:32] MED LIST changes: +ADVA250A INH; +CALC1TAB87 PO; +OMEP20TA93 PO; +PRED20 PO
[2017-12-02 17:51] VITALS: BP 144/63; PULSE 81; RESP 17; TEMP 97.9; O2SAT 99
[2017-12-02] MEDS ORDERED: OMEP20TA93 PO (18:39)
[2017-12-02] MEDS ORDERED: CABE0.5T PO (18:39)
[2017-12-02 18:40] VITALS: BP 138/65; PULSE 83; RESP 20; O2SAT 99
[2017-12-02 19:08] VITALS: BP 136/67; PULSE 82; RESP 18; O2SAT 98
[2017-12-02 19:09] VITALS: RESP 18; O2SAT 98
--- NOTE | 2017-12-02 19:11 | PD ---
HPI Chief Complaint: Respiratory Symptoms Time Seen by Provider: 18:55 Travel History International Travel<30 days: No Contact w/Intl Traveler<30days: No Traveled to known affect area: No History of Present Illness HPI 52-year-old female presents to the emergency department, sent by her primary care physician, Dr. Angel, for evaluation of left pleuritic chest pain. Patient states it is his specific area in her left upper chest. She states this started yesterday. It is worse with deep breathing and movement. Patient states that her physician sent her to rule out a PE since it is pleuritic. She denies any new leg swelling. No marked distress. No recent travel or surgery. She denies any history of DVT or PE. Patient denies any cardiac history. Patient denies any fevers or chills. No cough or congestion. Current pain is 7 /10 without radiation. Exacerbating factors movement, deep breathing. Alleviating factor is lying still. Moderate severity. PFSH Past Medical History Anemia: Yes Arthritis: Yes Asthma: No Autoimmune Disease: No Blood Disorders: No Anxiety: Yes Depression: No Heart Rhythm Problems: No Cancer: No Cardiovascular Problems: Yes High Cholesterol: Yes Chest Pain: Yes Congestive Heart Failure: No Cirrhosis: Yes COPD: Yes Cerebrovascular Accident: No Diabetes: No Diminished Hearing: Yes (LT. 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) Hiatal Hernia: No Hypertension: No Immune Disorder: No Kidney Stones: No Musculoskeletal: Yes (R HIP REPL) Neurologic: Yes (BRAIN SURGERY) Psychiatric: No Reproductive: No Respiratory: Yes Immunizations Current: No Myocardial Infarction: No Renal Failure: No Seizures: No Sickle Cell Disease: No Sleep Apnea: No Thyroid Disease: Yes Ulcer: Yes (GASTRIC) Tetanus Vaccination: < 5 Years Influenza Vaccination: Yes ?: Not Menopausal: Yes Tubal Ligation: Yes Past Surgical History Abdominal Surgery: Yes (TUBAL,1990) AICD: No Cardiac Surgery: No Ear Surgery: No Endocrine Surgery: No Eye Surgery: No Genitourinary Surgery: No Gynecologic Surgery: No Joint Replacement: Yes (RIGHT HIP 12/07, LEFT HIP 06/09) Neurologic Surgery: Yes (BRAIN TUMOR/SURGERY IN 2000) Oral Surgery: No Pacemaker: No Thoracic Surgery: No Other Surgery: Yes (RIGHT HIP REPLACEMENT,10/14/05,TUBAL 1990,BRAIN SURGERY( TUMOR),2001) Social History Alcohol Use: No Tobacco Use: No Substance Use: No Allergies-Medications (Allergen,Severity, Reaction): Coded Allergies: No Known Allergies (Verified Adverse Reaction, Unknown, 12/02/17) Reported Meds & Prescriptions Reported Meds & Active Scripts Active Tramadol (Tramadol HCl) 50 Mg Tab 50 Mg PO Q6H PRN Acyclovir 800 Mg Tab 800 Mg PO TID Ambien (Zolpidem Tartrate) 10 Mg Tab 10 Mg PO HS PRN Trazodone (Trazodone HCl) 100 Mg Tablet 250 Mg PO HS Take two and a half tablets at bedtime for insomnia. Reported Cabergoline 0.5 Mg Tab 0.5 Mg PO WEEKLY Omeprazole 20 Mg Tab 20 Mg PO BID Calcium 600 with Vitamin D (Calcium Carbonate-Cholecalciferol) 600-400 mg-Unit Tab 1 Tab PO DAILY Advair Diskus Inh (Fluticasone-Salmeterol Inh) 250-50 Mcg/Blist Aer 1 Puff INH BID Rinse mouth after use. Hydroxychloroquine (Hydroxychloroquine Sulfate) 200 Mg Tab 200 Mg PO BID Takw with food Folic Acid 1 Mg Tablet 1 Mg PO DAILY Dede 250 (Ursodiol) 250 Mg Tab 500 Mg PO BID Spiriva Handihaler (Tiotropium Inh) 18 Mcg Cap 18 Mcg INH DAILY 1 capsule = 18 mcg Review of Systems Except as stated in HPI: all other systems reviewed are Neg Physical Exam Narrative GENERAL: Well-nourished, well-developed female patient, ambulatory. Afebrile. SKIN: Focused skin assessment warm/dry. HEAD: Normocephalic. Atraumatic. EYES: No scleral icterus. No injection or drainage. NECK: Supple, trachea midline. No JVD or lymphadenopathy. CARDIOVASCULAR: Regular rate and rhythm without murmurs, gallops, or rubs. Bilateral radial and pedal pulses are 2+. RESPIRATORY: Breath sounds equal bilaterally. No accessory muscle use. Lungs sounds are clear to auscultation. GASTROINTESTINAL: Abdomen soft, non-tender, nondistended. MUSCULOSKELETAL: No cyanosis, or edema. Area where patient states her chest pain is easily reproduced with palpation. BACK: Nontender without obvious deformity. No CVA tenderness. Data Data Last Documented VS Vital Signs Date Time Temp Pulse Resp B/P (MAP) Pulse Ox O2 Delivery O2 Flow Rate FiO2 12/02/17 19:09 18 98 Room Air 12/02/17 19:08 82 12/02/17 17:51 97.9 Orders Orders Electrocardiogram (12/02/17 19:04) Basic Metabolic Panel (Bmp) (12/02/17 19:04) Ckmb (Isoenzyme) Profile (12/02/17 19:04) Complete Blood Count With Diff (12/02/17:) D-Dimer (12/02/17:04) Magnesium (Mg) (12/02/17 19:04) Prothrombin Time / Inr (Pt) (12/02/17:04) Act Partial Throm Time (Ptt) (12/02/17:) Troponin I (12/02/17:04) Chest, Single Ap (12/02/17:04) Ecg Monitoring (12/02/17 19:04) Bilateral Bp Monitoring (12/02/17:04) Iv Access Insert/Monitor (12/02/17:) Oximetry (12/02/17:04) Oxygen Administration (12/02/17 19:04) Sodium Chloride 0.9% Flush (Ns Flush) (12/02/17 19:15) Potassium Chloride (Kcl) (12/02/17 21:00) Labs Laboratory Tests Test 12/02/17 19:30 White Blood Count 11.6 TH/MM3 Red Blood Count 4.32 MIL/MM3 Hemoglobin 13.0 GM/DL Hematocrit 39.1 % Mean Corpuscular Volume 90.4 FL Mean Corpuscular Hemoglobin 30.0 PG Mean Corpuscular Hemoglobin Concent 33.2 % Red Cell Distribution Width 13.3 % Platelet Count 323 TH/MM3 Mean Platelet Volume 7.9 FL Neutrophils (%) (Auto) 59.1 % Lymphocytes (%) (Auto) 36.8 % Monocytes (%) (Auto) 3.1 % Eosinophils (%) (Auto) 0.2 % Basophils (%) (Auto) 0.8 % Neutrophils # (Auto) 6.9 TH/MM3 Lymphocytes # (Auto) 4.3 TH/MM3 Monocytes # (Auto) 0.4 TH/MM3 Eosinophils # (Auto) 0.0 TH/MM3 Basophils # (Auto) 0.1 TH/MM3 CBC Comment DIFF FINAL Differential Comment Prothrombin Time 10.5 SEC Prothromb Time International Ratio 1.0 RATIO Activated Partial Thromboplast Time 24.3 SEC D-Dimer Quantitative (PE/DVT) 0.25 MG/L FEU Blood Urea Nitrogen 10 MG/DL Creatinine 0.93 MG/DL Random Glucose 96 MG/DL Calcium Level 8.9 MG/DL Magnesium Level 2.0 MG/DL Sodium Level 139 MEQ/L Potassium Level 3.0 MEQ/L Chloride Level 103 MEQ/L Carbon Dioxide Level 28.0 MEQ/L Anion Gap 8 MEQ/L Estimat Glomerular Filtration Rate 76 ML/MIN Total Creatine Kinase 62 U/L Troponin I LESS THAN 0.02 NG/ML MDM Medical Decision Making Medical Screen Exam Complete: Yes Emergency Medical Condition: Yes Medical Record Reviewed: Yes Interpretation(s) chest x-ray - CONCLUSION: No acute disease. Differential Diagnosis Chest wall pain versus muscle strain versus ACS versus PE Narrative Course 52-year-old female presents to the emergency department reporting left-sided pleuritic chest pain that is worse with palpation and movement. This pain is easily reproduced on palpation. Patient was sent by primary care physician to rule out PE. EKG, CBC, BMP, CK, troponin, magnesium, PTT, PT/INR, d-dimer, chest x-ray are ordered and pending. Patient states she cannot have aspirin due to ulcer.. EKG shows SR, HR 81, no acute ST changes. CBC shows leukocytosis of 11.6. BMP shows hypokalemia of 3.0. CK is 62. Troponin is less than 0.02. Magnesium is 2.0. Coags are unremarkable. D-dimer is 0.25. Chest x-ray shows no acute disease. Patient is given potassium 40 mEq by mouth for hypokalemia. Symptoms and physical are consistent with muscle strain. Patient was seen a couple days ago for left shoulder pain. This is consistent with musculoskeletal pain, probably from left shoulder. I discussed discharge the patient feels comfortable going home. Patient is to follow-up with her primary care physician. She is return here for any acute worsening of symptoms. The patient was discharged in stable condition with instructions, including return instructions and follow up instructions. Diagnosis Primary Impression: Chest wall pain Referrals: Primary Care Physician call for appointment Patient Instructions: Chest Wall Pain (ED), General Instructions Additional Instructions: Follow-up with your primary care physician. Return to the emergency department for any acute worsening of symptoms. Med/Other Pt SpecificInfo: No Change to Meds Disposition: 01 DISCHARGE HOME Condition: Stable Kika Early Dec 02, 2017 19:11
[2017-12-02] MEDS ORDERED: SODIUM CHLORIDE 0.9% FLUSH 10 ML FLUSH IVF PRN (19:15)
[2017-12-02 20:04] LABS: AUTOMATED NEUTROPHIL # 6.9 TH/MM3 (1.8-7.7); BASOPHIL # 0.1 TH/MM3 (0-0.2); BASOPHIL % 0.8 % (0.0-2.0); EOSINOPHIL % 0.2 % (0.0-4.0); HEMATOCRIT 39.1 % (35.0-46.0); LYMPH % 36.8 % (9.0-44.0); LYMPHOCYTE # 4.3 TH/MM3 (1.0-4.8); MEAN CELL VOLUME 90.4 FL (80.0-100.0); MEAN CORPUSCULAR HGB CONC 33.2 % (32.0-36.0); MEAN PLATELET VOLUME 7.9 FL (7.0-11.0); MONO % 3.1 % (0.0-8.0); MONOCYTE # 0.4 TH/MM3 (0-0.9); NEUT % 59.1 % (16.0-70.0); PLATELET COUNT 323 TH/MM3 (150-450); RED BLOOD COUNT 4.32 MIL/MM3 (4.00-5.30); RED CELL DISTRIBUTION WIDTH 13.3 % (11.6-17.2); WHITE BLOOD COUNT 11.6 TH/MM3 (4.0-11.0)
--- NOTE | 2017-12-02 20:05 | RADRPT ---
EXAM DATE/TIME: 12/02/2017 19:40 [facility] COMPARISON: No previous studies available for comparison. INDICATIONS : Chest pain. MEDICAL HISTORY : Chronic obstructive pulmonary disease. Hepatitis B. Anemia. SURGICAL HISTORY : Brain tumor removed. ENCOUNTER: Initial ACUITY: 1 day PAIN SCORE: 6/10 LOCATION: Bilateral chest FINDINGS: A single view of the chest demonstrates the lungs to be symmetrically aerated without evidence of mas s, infiltrate or effusion. The cardiomediastinal contours are unremarkable. Osseous structures are intact. CONCLUSION: No acute disease. Shade Razo MD on December 02, 2017 at 20:04 Board Certified Radiologist. This report was verified electronically.
[2017-12-02 20:17] LABS: BLOOD UREA NITROGEN 10 MG/DL (7-18); CALCIUM 8.9 MG/DL (8.5-10.1); CHLORIDE 103 MEQ/L (98-107); CREATININE 0.93 MG/DL (0.50-1.00); GLOMERULAR FILTRATION RATE 76 ML/MIN (>89); GLUCOSE,RANDOM 96 MG/DL (74-106); SODIUM (NA) 139 MEQ/L (136-145)
[2017-12-02 20:21] LABS: TROPONIN I LESS THAN 0.02 NG/ML (0.02-0.05)
[2017-12-02 20:41] LABS: PROTHROMBIN TIME - PATIENT 10.5 SEC (9.8-11.6)
[2017-12-02 20:56] LABS: D-DIMER 0.25 MG/L FEU (0.00-0.50)
[2017-12-02] MEDS ORDERED: POTASSIUM CHLORIDE 20 MEQ CONTROLLED RELEASE TAB PO ONE (21:00)
--- NOTE | 2017-12-03 09:01 | EKG ---
Date Performed: 12/02/2017 Time Performed: 18:37:08 PTAGE: 52 years EKG: Sinus rhythm NORMAL ECG Since the prior tracing, there has been no significant change DOCTOR: Sarah Jacome Interpretating Date/Time 12/03/2017 08:59:33
== END 2017-12-02 21:38 | disposition home or self-care (01) ==
LOC: NEPC 17:32
DX: R07.89 Other chest pain (principal); E87.6 Hypokalemia
CPT/HCPCS: 71045; 80048; 82550; 83735; 84484; 85025; 85379; 85610; 85730; 93005

== ENCOUNTER → 2017-12-07 | Outpatient (CLI) | payer MEDICAID, MEDICARE ==
[~2017-12-07] MED LIST changes: +CABE0.5T PO; -DICL1GEL7 TOPICAL; -PRED20 PO
[2017-12-07 09:56] LABS: AUTOMATED NEUTROPHIL # 3.2 TH/MM3 (1.8-7.7); BASOPHIL # 0.1 TH/MM3 (0-0.2); BASOPHIL % 1.1 % (0.0-2.0); EOSINOPHIL # 0.1 TH/MM3 (0-0.4); EOSINOPHIL % 1.6 % (0.0-4.0); HEMATOCRIT 39.5 % (35.0-46.0); HEMOGLOBIN 13.4 GM/DL (11.6-15.3); LYMPH % 45.3 % (9.0-44.0); MEAN CELL VOLUME 90.7 FL (80.0-100.0); MEAN CORPUSCULAR HEMOGLOBIN 30.8 PG (27.0-34.0); MEAN CORPUSCULAR HGB CONC 33.9 % (32.0-36.0); MEAN PLATELET VOLUME 7.8 FL (7.0-11.0); MONOCYTE # 0.3 TH/MM3 (0-0.9); PLATELET COUNT 288 TH/MM3 (150-450); RED BLOOD COUNT 4.35 MIL/MM3 (4.00-5.30); RED CELL DISTRIBUTION WIDTH 13.4 % (11.6-17.2); WHITE BLOOD COUNT 6.7 TH/MM3 (4.0-11.0)
[2017-12-07 10:32] LABS: ALBUMIN 3.4 GM/DL (3.4-5.0); ALT (GPT) 16 U/L (10-53); AST (GOT) 11 U/L (15-37); BICARBONATE 32.4 MEQ/L (21.0-32.0); BLOOD UREA NITROGEN 8 MG/DL (7-18); CALCIUM 8.5 MG/DL (8.5-10.1); CHLORIDE 106 MEQ/L (98-107); CREATININE 0.83 MG/DL (0.50-1.00); GLOMERULAR FILTRATION RATE 87 ML/MIN (>89); GLUCOSE,FASTING 95 MG/DL (74-99); SODIUM (NA) 142 MEQ/L (136-145)
[2017-12-07 10:34] LABS: ALKALINE PHOSPHATASE 87 U/L (45-117); TOTAL BILIRUBIN ADULT 0.2 MG/DL (0.2-1.0); TOTAL PROTEIN 7.7 GM/DL (6.4-8.2)
[2017-12-07 16:20] LABS: HEMOGLOBIN A1C 5.7 % (4.3-6.0)
== END ==
LOC: CLAB 09:08
PROVIDERS: ATTEND Family Medicine
DX: R73.03 Prediabetes (principal)
CPT/HCPCS: 36415; 80053; 83036; 85025

== ENCOUNTER 2018-01-12 09:21 | Observation (INO) | payer MEDICARE, MEDICAID ==
[2018-01-12] VITALS (8 sets, daily range): BP systolic 138–162; BP diastolic 66–82; PULSE 69–76; RESP 16–22; TEMP 97.2–97.8; O2SAT 94–100
[~2018-01-12] VITALS: Ht 175.3 cm; Wt 94.0 kg
[2018-01-12] MEDS ORDERED: IOHEXOL 350 MG/ML 10 ML VIAL (for RAD DIAG) IVCONTRAST ONE (09:22)
[2018-01-12] MEDS ORDERED: SODIUM CHLORID 0.9% 500 ML INJ 500 ML IV ONE (09:45)
[2018-01-12] MEDS ORDERED: HYDROmorphone HCL PF 1 MG/ML VIAL IVS ONE ×2 (09:45→13:30)
--- NOTE | 2018-01-12 10:01 | PD ---
HPI Chief Complaint: Musculoskeletal Complaint Time Seen by Provider: 09:34 Travel History International Travel<30 days: No Contact w/Intl Traveler<30days: No Traveled to known affect area: No History of Present Illness HPI Patient gives intermittent history over a period of a year of left deep shoulder pain. She states that she has had workups at [facility] and at other facilities but has not been given a diagnosis. Generally IT comes and goes and lasts perhaps a few minutes to at most an hour. However today IT has been fairly constant in duration since last night, deep to her she points to her supraspinatus region and shoulder blade region but with radiations to her left shoulder, described as sharp, 10 out of 10, associated with some shortness of breath, denies nausea vomiting or diarrhea. Denies headache, denies neck pain, denies flank pain denies abdominal pain. No known drug allergy Patient has a history of hypothyroidism, brain tumor with brain surgery but with remaining brain tumor, COPD, hypercholesterolemia, ulcer disease, apparent left shoulder orthopedic surgery as well. Hepatitis B with liver damage PFSH Past Medical History Anemia: Yes Arthritis: Yes Asthma: No Autoimmune Disease: No Blood Disorders: No Anxiety: Yes Depression: No Heart Rhythm Problems: No Cancer: Yes (brain tumor) Cardiovascular Problems: Yes High Cholesterol: Yes Chest Pain: Yes Congestive Heart Failure: No Cirrhosis: Yes COPD: Yes Cerebrovascular Accident: No Diabetes: No Diminished Hearing: Yes (LT. 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) Hiatal Hernia: No Hypertension: No Immune Disorder: No Kidney Stones: No Musculoskeletal: Yes (R HIP REPL) Neurologic: Yes (BRAIN SURGERY) Psychiatric: No Reproductive: No Respiratory: Yes Immunizations Current: No Myocardial Infarction: No Renal Failure: No Seizures: No Sickle Cell Disease: No Sleep Apnea: No Thyroid Disease: Yes Ulcer: Yes (GASTRIC) Influenza Vaccination: Yes ?: Not Menopausal: Yes Tubal Ligation: Yes Past Surgical History Abdominal Surgery: Yes (TUBAL,1990) AICD: No Cardiac Surgery: No Ear Surgery: No Endocrine Surgery: No Eye Surgery: No Genitourinary Surgery: No Gynecologic Surgery: No Joint Replacement: Yes (RIGHT HIP 12/07, LEFT HIP 06/09) Neurologic Surgery: Yes (BRAIN TUMOR/SURGERY IN 2000) Oral Surgery: No Pacemaker: No Thoracic Surgery: No Other Surgery: Yes (RIGHT HIP REPLACEMENT,10/14/05,TUBAL 1991,BRAIN SURGERY( TUMOR),2001) Social History Alcohol Use: No Tobacco Use: No Substance Use: No Allergies-Medications (Allergen,Severity, Reaction): Coded Allergies: No Known Allergies (Verified Adverse Reaction, Unknown, 01/12/18) Reported Meds & Prescriptions Reported Meds & Active Scripts Active Tramadol (Tramadol HCl) 50 Mg Tab 50 Mg PO Q6H PRN Acyclovir 800 Mg Tab 800 Mg PO TID Ambien (Zolpidem Tartrate) 10 Mg Tab 10 Mg PO HS PRN Trazodone (Trazodone HCl) 100 Mg Tablet 250 Mg PO HS Take two and a half tablets at bedtime for insomnia. Reported Cabergoline 0.5 Mg Tab 0.5 Mg PO WEEKLY Omeprazole 20 Mg Tab 20 Mg PO BID Calcium 600 with Vitamin D (Calcium Carbonate-Cholecalciferol) 600-400 mg-Unit Tab 1 Tab PO DAILY Advair Diskus Inh (Fluticasone-Salmeterol Inh) 250-50 Mcg/Blist Aer 1 Puff INH BID Rinse mouth after use. Hydroxychloroquine (Hydroxychloroquine Sulfate) 200 Mg Tab 200 Mg PO BID Takw with food Folic Acid 1 Mg Tablet 1 Mg PO DAILY Dede 250 (Ursodiol) 250 Mg Tab 500 Mg PO BID Spiriva Handihaler (Tiotropium Inh) 18 Mcg Cap 18 Mcg INH DAILY 1 capsule = 18 mcg Review of Systems General / Constitutional: No: Fever Eyes: No: Visual changes HENT: No: Headaches Cardiovascular: No: Chest Pain or Discomfort Respiratory: No: Shortness of Breath Gastrointestinal: No: Abdominal Pain Genitourinary: No: Dysuria Musculoskeletal: Positive: Limited ROM, Pain Skin: No Rash Neurologic: No: Weakness Psychiatric: No: Depression Endocrine: No: Polydipsia Hematologic/Lymphatic: No: Easy Bruising Physical Exam Narrative GENERAL: SKIN: Warm and dry. HEAD: Atraumatic. Normocephalic. EYES: Pupils equal and round. No scleral icterus. No injection or drainage. ENT: No nasal bleeding or discharge. Mucous membranes pink and moist. NECK: Trachea midline. No JVD. CARDIOVASCULAR: Regular rate and rhythm. RESPIRATORY: No accessory muscle use. Clear to auscultation. Breath sounds equal bilaterally. GASTROINTESTINAL: Abdomen soft, non-tender, nondistended. MUSCULOSKELETAL: Extremities without clubbing, cyanosis, or edema. No obvious deformities. no ttp on shoulder, pain is independant of shoulder movement NEUROLOGICAL: Awake and alert. No obvious cranial nerve deficits. Motor grossly within normal limits. Five out of 5 muscle strength in the arms and legs. Normal speech. PSYCHIATRIC: Appropriate mood and affect; insight and judgment normal. Data Data Last Documented VS Vital Signs Date Time Temp Pulse Resp B/P (MAP) Pulse Ox O2 Delivery O2 Flow Rate FiO2 01/12/18 12:30 76 18 159/74 (102) 97 Room Air 01/12/18 09:26 97.8 Orders Orders Electrocardiogram (01/12/18 09:40) B-Type Natriuretic Peptide (01/12/18 09:40) Ckmb (Isoenzyme) Profile (01/12/18 09:40) Complete Blood Count With Diff (01/12/18 09:40) Comprehensive Metabolic Panel (01/12/18 09:40) Prothrombin Time / Inr (Pt) (01/12/18 09:40) Act Partial Throm Time (Ptt) (01/12/18 09:40) Troponin I (01/12/18 09:40) Lipase (01/12/18 09:40) Ecg Monitoring (01/12/18 09:40) Bilateral Bp Monitoring (01/12/18 09:40) Iv Access Insert/Monitor (01/12/18 09:40) Oximetry (01/12/18 09:40) Sodium Chlorid 0.9% 500 Ml Inj (Ns 500 M (01/12/18 09:45) Cta Thor Abd Aorta W Iv C W3d (01/12/18 09:40) NPO (01/12/18 09:40) Hydromorphone Pf Inj (Dilaudid Pf Inj) (01/12/18 09:45) Us Arm Venous Doppler (01/12/18 09:50) Ct Cerv Spine W/O Contrast (01/12/18 09:54) Vascular Access Team Consult/P PRN (01/12/18 10:07) Vascular Poc Ultrasound (01/12/18 ) Hydromorphone Pf Inj (Dilaudid Pf Inj) (01/12/18 10:44) Iohexol 350 Inj (Omnipaque 350 Inj) (01/12/18 09:22) Hydromorphone Pf Inj (Dilaudid Pf Inj) (01/12/18 13:30) Hydromorphone Pf Inj (Dilaudid Pf Inj) (01/12/18 13:27) Electrocardiogram (01/12/18 11:09) Admit Order (Ed Use Only) (01/12/18 13:49) Labs Laboratory Tests Test 01/12/18 10:35 White Blood Count 14.4 TH/MM3 Red Blood Count 4.28 MIL/MM3 Hemoglobin 12.9 GM/DL Hematocrit 38.7 % Mean Corpuscular Volume 90.3 FL Mean Corpuscular Hemoglobin 30.2 PG Mean Corpuscular Hemoglobin Concent 33.4 % Red Cell Distribution Width 13.8 % Platelet Count 319 TH/MM3 Mean Platelet Volume 7.8 FL Neutrophils (%) (Auto) 65.7 % Lymphocytes (%) (Auto) 29.8 % Monocytes (%) (Auto) 3.4 % Eosinophils (%) (Auto) 0.2 % Basophils (%) (Auto) 0.9 % Neutrophils # (Auto) 9.4 TH/MM3 Lymphocytes # (Auto) 4.3 TH/MM3 Monocytes # (Auto) 0.5 TH/MM3 Eosinophils # (Auto) 0.0 TH/MM3 Basophils # (Auto) 0.1 TH/MM3 CBC Comment DIFF FINAL Differential Comment Prothrombin Time 10.1 SEC Prothromb Time International Ratio 1.0 RATIO Activated Partial Thromboplast Time 24.7 SEC Blood Urea Nitrogen 13 MG/DL Creatinine 0.74 MG/DL Random Glucose 73 MG/DL Total Protein 7.8 GM/DL Albumin 3.4 GM/DL Calcium Level 8.6 MG/DL Alkaline Phosphatase 89 U/L Aspartate Amino Transf (AST/SGOT) 8 U/L Alanine Aminotransferase (ALT/SGPT) 17 U/L Total Bilirubin 0.2 MG/DL Sodium Level 140 MEQ/L Potassium Level 3.4 MEQ/L Chloride Level 105 MEQ/L Carbon Dioxide Level 29.0 MEQ/L Anion Gap 6 MEQ/L Estimat Glomerular Filtration Rate 99 ML/MIN Total Creatine Kinase 41 U/L Troponin I LESS THAN 0.02 NG/ML B-Type Natriuretic Peptide 14 PG/ML Lipase 162 U/L MDM Medical Decision Making Medical Screen Exam Complete: Yes Emergency Medical Condition: Yes Medical Record Reviewed: Yes Interpretation(s) EKG shows a normal sinus rhythm, 74 bpm, there is LVH criteria met, no evidence of any STEMI pattern noted Differential Diagnosis Left brachial plexopathy versus left arm DVT versus cervical neuropathy/ neuralgia versus cervical stenosis versus AAA versus dissecting aneurysm versus STEMI versus pericardial effusion versus pericarditis Narrative Course Correlation profiles within normal limits CBC shows reactive leukocytosis without anemia normal platelet count and no left shift Electrolytes are all within normal limits, normal kidney liver and pancreatic functions Negative first set of cardiac enzymes Ultrasound negative for DVT on left arm Cervical spine per radiologist is negative for any stenosis or disc bulge or impingement. 1. No aneurysm or dissection is seen. 2. 2 pulmonary nodules seen in the right middle lobe and right lower lobe. 3. 1.7 cm mass seen adjacent to the posterior pericardium in the left lower lobe region. This is nonspecific. It could represent a pericardial cyst. A pulmonary mass cannot be excluded. One could further evaluate this with the PET FDG study to determine if it is metabolically active or not. If it is not metabolically active, it could be followed. 4. 2.7 cm hepatic mass. This could be further evaluated with an MRI examination of the abdomen with contrast. A MRI examination of the abdomen may also visualized the mass in the left lower chest/pericardial region. Catarino Silva MD on January 12, 2018 at 12:49 Critical Care Narrative CRITICAL CARE NOTE: With evaluation of the patient, labs, EKG, receipt of radiologic studies, administration of medications, reevaluation the patient and discussion of the patient with the admitting physicians, the total critical care time was [30] minutes. Time to perform other separately billable procedures was not included in the critical care time. Diagnosis Primary Impression: Atypical left neck/SHOULDER pain Disposition: 01 DISCHARGE HOME Condition: Stable Yossi Acosta MD Jan 12, 2018 10:01
[2018-01-12] MEDS ORDERED: HYDROmorphone HCL PF 2 MG/ML VIAL ONE ×2 (10:44→13:27)
[2018-01-12 10:57] LABS: AUTOMATED NEUTROPHIL # 9.4 TH/MM3 (1.8-7.7); BASOPHIL # 0.1 TH/MM3 (0-0.2); BASOPHIL % 0.9 % (0.0-2.0); EOSINOPHIL % 0.2 % (0.0-4.0); HEMATOCRIT 38.7 % (35.0-46.0); HEMOGLOBIN 12.9 GM/DL (11.6-15.3); LYMPH % 29.8 % (9.0-44.0); LYMPHOCYTE # 4.3 TH/MM3 (1.0-4.8); MEAN CELL VOLUME 90.3 FL (80.0-100.0); MEAN CORPUSCULAR HEMOGLOBIN 30.2 PG (27.0-34.0); MEAN CORPUSCULAR HGB CONC 33.4 % (32.0-36.0); MEAN PLATELET VOLUME 7.8 FL (7.0-11.0); MONO % 3.4 % (0.0-8.0); MONOCYTE # 0.5 TH/MM3 (0-0.9); NEUT % 65.7 % (16.0-70.0); PLATELET COUNT 319 TH/MM3 (150-450); RED BLOOD COUNT 4.28 MIL/MM3 (4.00-5.30); RED CELL DISTRIBUTION WIDTH 13.8 % (11.6-17.2); WHITE BLOOD COUNT 14.4 TH/MM3 (4.0-11.0)
[2018-01-12 11:04] LABS: PROTHROMBIN TIME - PATIENT 10.1 SEC (9.8-11.6)
[2018-01-12 11:16] LABS: ALBUMIN 3.4 GM/DL (3.4-5.0); AST (GOT) 8 U/L (15-37); BLOOD UREA NITROGEN 13 MG/DL (7-18); CALCIUM 8.6 MG/DL (8.5-10.1); CHLORIDE 105 MEQ/L (98-107); CREATININE 0.74 MG/DL (0.50-1.00); GLOMERULAR FILTRATION RATE 99 ML/MIN (>89); GLUCOSE,RANDOM 73 MG/DL (74-106); SODIUM (NA) 140 MEQ/L (136-145)
[2018-01-12 11:17] LABS: ALT (GPT) 17 U/L (10-53)
[2018-01-12 11:21] LABS: ALKALINE PHOSPHATASE 89 U/L (45-117); TOTAL BILIRUBIN ADULT 0.2 MG/DL (0.2-1.0); TOTAL PROTEIN 7.8 GM/DL (6.4-8.2); TROPONIN I LESS THAN 0.02 NG/ML (0.02-0.05)
--- NOTE | 2018-01-12 11:31 | RADRPT ---
EXAM DATE/TIME: 01/12/2018 10:17 [facility] COMPARISON: No previous studies available for comparison. INDICATIONS : Left shoulder pain. MEDICAL HISTORY : Hypercholesterolemia. Chronic obstructive pulmonary disease. Hepatitis B. Ulcer. Arthritis. Cirrhosis . SURGICAL HISTORY : Tubal ligation. Brain surgery. Bilateral hip replacement. Left shoulder surgery. ENCOUNTER: Initial ACUITY: >1 year PAIN SCORE: 5/10 LOCATION: Left arm. FINDINGS: There is spontaneous flow documented in the brachial, basilic, cephalic, axillary, and subclavian vei ns. The vessels are compressible and augmentation response is documented. No filling defects are se en. The flow is phasic with respiration. Direction of flow in the jugular vein is caudal. CONCLUSION: No evidence of deep venous thrombosis within the left upper extremity. Shade Razo MD on January 12, 2018 at 11:27 Board Certified Radiologist. This report was verified electronically.
--- NOTE | 2018-01-12 12:51 | RADRPT ---
EXAM DATE/TIME: 01/12/2018 11:58 [facility] COMPARISON: No previous studies available for comparison. INDICATIONS : Neck and left shoulder pain. RADIATION DOSE: 25.33 CTDIvol (mGy) MEDICAL HISTORY : Hepatitis B. Chronic obstructive pulmonary disease. Cardiovascular diseaseBrain tumor. SURGICAL HISTORY : Brain tumor resection. ENCOUNTER: Initial ACUITY: 1 day PAIN SCALE: 7/10 LOCATION: Left neck TECHNIQUE: Volumetric scanning of the cervical spine was performed. Multiplanar reconstructions in the sagittal, coronal and oblique axial planes were performed. Using automated exposure control and adjustment o f the mA and/or kV according to patient size, radiation dose was kept as low as reasonably achievable to obtain optimal diagnostic quality images. DICOM format image data is available electronically f or review and comparison. FINDINGS: VERTEBRAE: Normal vertebral body height. ALIGNMENT: No evidence of subluxation. C2-C3: The bony spinal canal is normal in size. No evidence of disc bulge or herniation. The neural forami na are bilaterally patent. C3-C4: The bony spinal canal is normal in size. No evidence of disc bulge or herniation. The neural forami na are bilaterally patent. C4-C5: The bony spinal canal is normal in size. No evidence of disc bulge or herniation. The neural forami na are bilaterally patent. C5-C6: The bony spinal canal is normal in size. No evidence of disc bulge or herniation. The neural forami na are bilaterally patent. C6-C7: The bony spinal canal is normal in size. No evidence of disc bulge or herniation. The neural forami na are bilaterally patent. C7-T1: The bony spinal canal is normal in size. No evidence of disc bulge or herniation. The neural forami na are bilaterally patent. CONCLUSION: No acute disease. Catarino Silva MD on January 12, 2018 at 12:48 Board Certified Radiologist. This report was verified electronically.
--- NOTE | 2018-01-12 13:03 | RADRPT ---
EXAM DATE/TIME: 01/12/2018 12:08 This report includes an Addendum and supersedes previous reports for this exam. [facility] COMPARISON: No previous studies available for comparison. INDICATIONS : Left side chest pain that radiates to left shoulder, shortness of breath. IV CONTRAST: 90 cc Omnipaque 350 (iohexol) IV RADIATION DOSE: 17.10 CTDIvol (mGy) MEDICAL HISTORY : Cardiovascular disease. Chronic obstructive pulmonary disease. Hepatitis B.Brain tumor. SURGICAL HISTORY : Brain surgery resection. ENCOUNTER: Initial ACUITY: 1 day PAIN SCALE: 10/10 LOCATION: Left chest TECHNIQUE: Volumetric scanning was performed using a multi-row detector CT scanner. The data was post processed with a variety of visualization algorithms including full volume maximum intensity projection, multi -planar sliding thin slab reformation, curved planar reformation, and surface rendering techniques. Using automated exposure control and adjustment of the mA and/or kV according to patient size, radiat ion dose was kept as low as reasonably achievable to obtain optimal diagnostic quality images. DICOM format image data is available electronically for review and comparison. FINDINGS: LUNGS: There is a 1.7 cm mass at the inferior medial left lower lobe abutting the pericardium. It is uncerta in at this represented a pericardial mass or a pulmonary mass. There are 2 small pulmonary nodules s een in the right middle lobe measuring 0.5 cm and at the right lower lobe measuring 0.5 cm. MEDIASTINUM: No abnormally enlarged lymph nodes by CT criteria. No axillary or hilar abnormalities are identified. ABDOMEN: There is a 2.7 cm hepatic mass in the right lobe. The spleen is free of focal defects. The gallbladde r and pancreas demonstrate no abnormality. The adrenal glands are normal. The kidneys demonstrate no evidence of solid renal mass or hydronephrosis. No free fluid or abdominal masses are identified. No para-aortic adenopathy is seen. PELVIS: No evidence of free fluid or pelvic mass. There is a 0.9 cm calcification seen in the right ovary. Th e ovaries are not enlarged. No abnormally enlarged inguinal or retroperitoneal lymph nodes are presen t. The bladder is unremarkable. Bilateral hip prostheses are present. THORACIC AORTA: The thoracic aortic root is normal. The origins of the great vessels are without stenosis. The left c ommon carotid artery arises from the base of the right brachiocephalic artery which is a normal varia nt. There is no evidence of aneurysm or dissection. ABDOMINAL AORTA: The aorta is normal in caliber without aneurysm or dissection. The renal arteries are patent bilater ally. The proximal celiac and superior mesenteric arteries are patent and normal in diameter. PELVIC VESSELS: The internal iliac and external iliac vessels are patent without aneurysm or stenosis. CONCLUSION: 1. No aneurysm or dissection is seen. 2. 2 pulmonary nodules seen in the right middle lobe and right lower lobe. 3. 1.7 cm mass seen adjacent to the posterior pericardium in the left lower lobe region. This is nons pecific. It could represent a pericardial cyst. A pulmonary mass cannot be excluded. One could furthe r evaluate this with the PET FDG study to determine if it is metabolically active or not. If it is no t metabolically active, it could be followed. 4. 2.7 cm hepatic mass. This could be further evaluated with an MRI examination of the abdomen with c ontrast. A MRI examination of the abdomen may also visualized the mass in the left lower chest/perica rdial region. Catarino Silva MD on January 12, 2018 at 12:49 Board Certified Radiologist. This report was verified electronically. ADDENDUM: Comparison [facility] chest from [facility] on 11-05-17 is obtained. Subcentimeter pulmonary nodules are stable. The low density lesion in the liver is also stable and likely benign. The lesion described in the left lower lobe adjacent to the pericardium is new. This is nonspecific. A PET/CT sc an and/or followup CT chest in 3 months is recommended to document stability. Viktor Pina MD on January 18, 2018 at 8:20 Board Certified Radiologist. This report was verified electronically.
--- NOTE | 2018-01-12 14:30 | HHI.HP ---
HPI Service Family Medicine Primary Care Physician Shaheed Angel MD Admission Diagnosis R/O BRACHIAL PLEXOPATHY VS MASS Diagnoses: International Travel<30 Days: No Contact w/Intl Traveler<30days: No Known Affected Area: No History of Present Illness Ms. Iverson is a 52-year-old female with past medical history of meningioma and COPD who presented to the ED this morning for pain in her left shoulder. She stated that the pain started around 9 PM last night. She described the pain as 8/10 heavy sharp pain located in her left shoulder which radiated from left jaw to her shoulder to her back. This pain started years ago, but became worse suddenly last night. She states that the pain is off and on, but "hurts 24", nothing makes the pain better. Upon chart review she had a left shoulder x-ray done in November 2017 which revealed chronic significant arthropathy of the acromioclavicular joint. She is also experiencing a pressure-like chest pain and states that she was gasping for breath. She used her inhaler and CPAP to help with this. She also stated that she was so scared that she slept with her finger on her life alert just in case she needed emergency help. However, she waited until the morning and had her mom drive her to the hospital. Has a brain tumor (meningioma). had brain surgery in 2000 to remove part of it. wrapped around main artery of brain. It is enlarging. Goes to [facility] in [place] for this. Review of Systems Constitutional: COMPLAINS OF: Weight loss (236 to 213 over 3-4 months unintentionally), DENIES: Fever, Chills Eyes: COMPLAINS OF: Blurred vision, Double Vision Ears, nose, mouth, throat: DENIES: Throat pain Respiratory: COMPLAINS OF: Cough, Shortness of breath Cardiovascular: COMPLAINS OF: Chest pain, Palpitations Gastrointestinal: DENIES: Abdominal pain, Black stools, Bloody stools, Constipation, Diarrhea, Nausea, Vomiting Genitourinary: DENIES: Dysuria Musculoskeletal: DENIES: Muscle aches Integumentary: DENIES: Rash Neurologic: DENIES: Localized weakness, Paresthesias, Seizures Past Family Social History Past Medical History Meningioma COPD Hepatitis B Pre-diabetes RENU- uses CPAP Stomach ulcer herpes (never had an outbreak, but on acyclovir) Past Surgical History Brain surgery 2000 2 hip replacements tubal ligation foot surgery wisdom teeth extraction Reported Medications Reported Meds & Active Scripts Active Tramadol (Tramadol HCl) 50 Mg Tab 50 Mg PO Q6H PRN Acyclovir 800 Mg Tab 800 Mg PO TID Ambien (Zolpidem Tartrate) 10 Mg Tab 10 Mg PO HS PRN Trazodone (Trazodone HCl) 100 Mg Tablet 250 Mg PO HS Take two and a half tablets at bedtime for insomnia. Reported Cabergoline 0.5 Mg Tab 0.5 Mg PO WEEKLY Omeprazole 20 Mg Tab 20 Mg PO BID Calcium 600 with Vitamin D (Calcium Carbonate-Cholecalciferol) 600-400 mg-Unit Tab 1 Tab PO DAILY Advair Diskus Inh (Fluticasone-Salmeterol Inh) 250-50 Mcg/Blist Aer 1 Puff INH BID Rinse mouth after use. 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 SKIN: No rashes, ecchymoses or lesions. Cool and dry. HEAD: Atraumatic. Normocephalic. EYES: Pupils equal round and reactive. Miotic. Extraocular motions intact. No scleral icterus. No injection or drainage. ENT: Nose without bleeding, purulent drainage or septal hematoma. Throat without erythema, tonsillar hypertrophy or exudate. Uvula midline. Airway patent. NECK: Trachea midline. No JVD or lymphadenopathy. Supple, nontender. CARDIOVASCULAR: Regular rate and rhythm without murmurs, gallops, or rubs. Left chest wall tenderness RESPIRATORY: Clear to auscultation. Breath sounds distant, but equal bilaterally. No wheezes, rales, or rhonchi. GASTROINTESTINAL: Abdomen soft, non-tender, nondistended. No hepato-splenomegaly , or palpable masses. No guarding. MUSCULOSKELETAL: Extremities without clubbing, cyanosis, or edema. No joint tenderness, effusion, or edema noted. No calf tenderness. NEUROLOGICAL: Awake and alert. Motor and sensory grossly within normal limits. Normal speech. Laboratory Laboratory Tests Test 01/12/18 10:35 White Blood Count 14.4 Red Blood Count 4.28 Hemoglobin 12.9 Hematocrit 38.7 Mean Corpuscular Volume 90.3 Mean Corpuscular Hemoglobin 30.2 Mean Corpuscular Hemoglobin Concent 33.4 Red Cell Distribution Width 13.8 Platelet Count 319 Mean Platelet Volume 7.8 Neutrophils (%) (Auto) 65.7 Lymphocytes (%) (Auto) 29.8 Monocytes (%) (Auto) 3.4 Eosinophils (%) (Auto) 0.2 Basophils (%) (Auto) 0.9 Neutrophils # (Auto) 9.4 Lymphocytes # (Auto) 4.3 Monocytes # (Auto) 0.5 Eosinophils # (Auto) 0.0 Basophils # (Auto) 0.1 CBC Comment DIFF FINAL Differential Comment Prothrombin Time 10.1 Prothromb Time International Ratio 1.0 Activated Partial Thromboplast Time 24.7 Blood Urea Nitrogen 13 Creatinine 0.74 Random Glucose 73 Total Protein 7.8 Albumin 3.4 Calcium Level 8.6 Alkaline Phosphatase 89 Aspartate Amino Transf (AST/SGOT) 8 Alanine Aminotransferase (ALT/SGPT) 17 Total Bilirubin 0.2 Sodium Level 140 Potassium Level 3.4 Chloride Level 105 Carbon Dioxide Level 29.0 Anion Gap 6 Estimat Glomerular Filtration Rate 99 Total Creatine Kinase 41 Troponin I LESS THAN 0.02 B-Type Natriuretic Peptide 14 Lipase 162 Result Diagram: 01/12/18 1035 01/12/18 1035 Imaging Last Impressions Cervical Spine CT 01/12/18 0979 Signed Impressions: Service Date/Time: Friday, January 12, 2018 11:58 - CONCLUSION: No acute disease. Catarino Silva MD Upper Extremity Ultrasound 01/12/18 0950 Signed Impressions: Service Date/Time: Friday, January 12, 2018 10:17 - CONCLUSION: No evidence of deep venous thrombosis within the left upper extremity. Shade Razo MD Aorta CTA 01/12/1840 Signed Impressions: Service Date/Time: Friday, January 12, 2018 12:08 - CONCLUSION: 1. No aneurysm or dissection is seen. 2. 2 pulmonary nodules seen in the right middle lobe and right lower lobe. 3. 1.7 cm mass seen adjacent to the posterior pericardium in the left lower lobe region. This is nonspecific. It could represent a pericardial cyst. A pulmonary mass cannot be excluded. One could further evaluate this with the PET FDG study to determine if it is metabolically active or not. If it is not metabolically active, it could be followed. 4. 2.7 cm hepatic mass. This could be further evaluated with an MRI examination of the abdomen with contrast. A MRI examination of the abdomen may also visualized the mass in the left lower chest/pericardial region. Catarino Silva MD Caprini VTE Risk Assessment Caprini VTE Risk Assessment: Mod/High Risk (score >= 2) Caprini Risk Assessment Model Point Value = 1 Point Value = 2 Point Value = 3 Point Value = 5 Age 41-60 Minor surgery BMI > 25 kg/m2 Swollen legs Varicose veins or History of unexplained or recurrent spontaneous Oral contraceptives or hormone replacement Sepsis (< 1 month) Serious lung disease, including pneumonia (< 1 month) Abnormal pulmonary function Acute myocardial infarction Congestive heart failure (< 1 month) History of inflammatory bowel disease Medical patient at bed rest Age 61-74 Arthroscopic surgery Major open surgery (> 45 min) Laparoscopic surgery (> 45 min) Malignancy Confined to bed (> 72 hours) Immobilizing plaster cast Central venous access Age >= 75 History of VTE Family history of VTE Factor V Leiden Prothrombin [id number] Lupus anticoagulant Anticardiolipin antibodies Elevated serum homocysteine Heparin-induced thrombocytopenia Other congenital or acquired thrombophilia Stroke (< 1 month) Elective arthroplasty Hip, pelvis, or leg fracture Acute spinal cord injury (< 1 month) Prophylaxis Regimen Total Risk Factor Score Risk Level Prophylaxis Regimen 0-1 Low Early ambulation 2 Moderate Order ONE of the following: *Sequential Compression Device (SCD) *Heparin 5000 units SQ BID 3-4 Higher Order ONE of the following medications: *Heparin 5000 units SQ TID *Enoxaparin/Lovenox 40 mg SQ daily (WT < 150 kg, CrCl > 30 mL/min) *Enoxaparin/Lovenox 30 mg SQ daily (WT < 150 kg, CrCl > 10-29 mL/min) *Enoxaparin/Lovenox 30 mg SQ BID (WT < 150 kg, CrCl > 30 mL/min) AND/OR *Sequential Compression Device (SCD) 5 or more Highest Order ONE of the following medications: *Heparin 5000 units SQ TID (Preferred with Epidurals) *Enoxaparin/Lovenox 40 mg SQ daily (WT < 150 kg, CrCl > 30 mL/min) *Enoxaparin/Lovenox 30 mg SQ daily (WT < 150 kg, CrCl > 10-29 mL/min) *Enoxaparin/Lovenox 30 mg SQ BID (WT < 150 kg, CrCl > 30 mL/min) AND *Sequential Compression Device (SCD) Assessment and Plan Assessment and Plan 52-year-old -[place] female with a past medical history of COPD and meningioma presenting to the ED with left shoulder pain Code Status Full code Discussed Condition With Dr. Evans Problem List: (1) Left shoulder pain ICD Codes: M25.512 - Left shoulder pain Status: Acute Plan: Patient with left shoulder pain of a few years duration. Left shoulder x -ray conducted in November 2017 showed chronic significant arthropathy of the acromioclavicular joint. This pain acutely worsened overnight with pain radiating from the jaw to the shoulder to the back with significant shortness of breath. Left upper extremity ultrasound on admission showed no DVT Cervical spine CT was negative Could be musculoskeletal versus cardiac versus diaphragmatic referred pain versus brachial plexopathy -Patient given total of 6 mg of Dilaudid in ED -Troponin 1 negative -next troponin to be drawn at 1635 every 6h x2 with responding EKG -EKG on admission showed normal sinus rhythm with LVH (2) Mass near pericardium Status: Acute Plan: Aorta CTA on admission showed a 1.7 cm mass at the inferior medial left lower lobe abutting the pericardium. A PET FDG scan was recommended by radiology along with the MRI abdomen which also could visualize this mass. Needs to be differentiated whether it is a pericardial mass or pulmonary mass. -Will consider oncology consultation for this and other masses found on imaging (3) Pulmonary nodules/lesions, multiple ICD Codes: R91.8 - Other nonspecific abnormal finding of lung field Status: Acute Plan: Aorta CTA on admission showed 2 pulmonary nodules seen in the right middle lobe and right lower lobe. Both measured 0.5 cm. Due to the size and incidental finding in nature may be benign. (4) Liver mass ICD Codes: R16.0 - Hepatomegaly, not elsewhere classified Status: Acute Plan: Aorta CTA on admission showed 2.7 cm hepatic mass. Recommendation by radiologist just for a MRI with contrast of the abdomen. -Upon chart review on [place], patient has a history of hepatic hemangioma. This may be the finding on CTA. However will order an MRI with contrast. -MRI abdomen with contrast pending (5) COPD (chronic obstructive pulmonary disease) ICD Codes: J44.9 - Chronic obstructive pulmonary disease Status: Chronic Plan: Continue at home medications of Advair and Spiriva inhalers (6) Obstructive sleep apnea syndrome ICD Codes: G47.33 - Obstructive sleep apnea syndrome Status: Chronic Plan: Patient uses CPAP at home -Ordered BiPAP to use while in the hospital (7) Herpes ICD Codes: B00.9 - Herpes Status: Chronic Plan: Continue at home acyclovir (8) Insomnia ICD Codes: G47.00 - Insomnia Status: Chronic Plan: Continue at home medications of trazodone 250mg po HS and Ambien 10mg po HS PRN (9) Rheumatoid arthritis ICD Codes: M06.9 - Rheumatoid arthritis Status: Chronic Plan: Continue at home medication of hydroxychloroquine 200mg BID and folic acid (10) HX BENIGN NEOPLASM/BRAIN Status: Chronic Plan: Pt has a hx of meningioma. Continue at home Cabergoline for hyperprolactinemia (11) FEN Status: Acute Plan: Fluids: tolerating PO Electrolytes: monitor and replete as needed Nutrition: regular diet DVT Prophylaxis: Early ambulation. Lovenox 40mg subQ q24hr GI Prophylaxis: continue at home omeprazole Physician Certification 2 Midnight Certification Type: Admission for Inpatient Services Order for Inpatient Services The services are ordered in accordance with Medicare regulations or non- Medicare payer requirements, as applicable. In the case of services not specified as inpatient-only, they are appropriately provided as inpatient services in accordance with the 2-midnight benchmark. Estimated LOS (days): 2 days is the estimated time the patient will need to remain in the hospital, assuming treatment plan goals are met and no additional complications. Post-Hospital Plan: Home Problem Qualifiers (1) Left shoulder pain: Qualified Codes: M25.512 - Pain in left shoulder; G89.29 - Other chronic pain (2) COPD (chronic obstructive pulmonary disease): Qualified Codes: J44.9 - Chronic obstructive pulmonary disease, unspecified (3) Rheumatoid arthritis: Verena Carrasco MD R1 Jan 12, 2018 14:30
[2018-01-12] MEDS ORDERED: ONDANSETRON HCL 4 MG/2 ML VIAL IV PUSH ONE (15:00)
--- NOTE | 2018-01-12 15:00 | EKG ---
Date Performed: 01/12/2018 Time Performed: 11:09:25 PTAGE: 52 years EKG: Sinus rhythm MODERATE VOLTAGE CRITERIA FOR LVH, CONSIDER NORMAL VARIANT BORDERLINE ECG PREVIOUS TRACING : 01/12/2018 10.01 Since the previous tracing, no significant change noted DOCTOR: Dylon Alfaro Interpretating Date/Time 01/12/2018 14:58:52
[2018-01-12] MEDS ORDERED: ONDANSETRON HCL 4 MG/2 ML VIAL IVP PRN (15:15)
[2018-01-12] MEDS ORDERED: POTASSIUM CHLORIDE 10 MEQ CONTROLLED RELEASE TAB PO ONE (15:15)
[2018-01-12] MEDS ORDERED: SODIUM CHLORIDE 0.9% FLUSH 10 ML FLUSH IV FLUSH PRN (15:15)
[2018-01-12] MEDS ORDERED: BISACODYL 10 MG SUPP RECTAL PRN (15:15)
[2018-01-12] MEDS ORDERED: SENNOSIDES 8.6 MG TAB PO PRN (15:15)
[2018-01-12] MEDS ORDERED: LACTULOSE SYRUP 20 GM/30 ML CUP PO PRN (15:15)
[2018-01-12] MEDS ORDERED: NALOXONE HCL 0.4 MG/ML AMP IV PUSH PRN ×2 (15:15)
[2018-01-12] MEDS ORDERED: MAGNESIUM HYDROXIDE SUSP 30 ML CUP PO PRN (15:15)
[2018-01-12] MEDS ORDERED: MORPHINE SULFATE 2 MG/ML SYRINGE IV PUSH PRN (15:15)
[2018-01-12] MEDS ORDERED: ACETAMINOPHEN/HYDROcodone 325 MG/5 MG TAB PO PRN (15:15)
[2018-01-12] MEDS ORDERED: ACETAMINOPHEN 325 MG TAB PO PRN (15:15)
[2018-01-12] MEDS: ENOXAPARIN SODIUM 40 MG/0.4 ML SYRINGE SQ SCH (16:18)
[2018-01-12] MEDS ORDERED: GADODIAMIDE PF 287 MG/ML 20 ML VIAL (for RAD MRI) IVCONTRAST ONE (19:30)
[2018-01-12] MEDS ORDERED: ZOLPIDEM TARTRATE 10 MG TAB PO PRN (19:45)
--- NOTE | 2018-01-12 20:16 | RADRPT ---
EXAM DATE/TIME: 01/12/2018 19:09 [facility] COMPARISON: No previous studies available for comparison. INDICATIONS : Mass in liver. CONTRAST: 19 cc Omniscan (gadodiamide) IV MEDICAL HISTORY : Meningioma. SURGICAL HISTORY : Craniotomy. Bilateral hip surgery. ENCOUNTER: Subsequent ACUITY: 1 day PAIN SCORE: 0/10 LOCATION: abdomen. TECHNIQUE: Multiplanar, multisequence magnetic resonance imaging of the abdomen was performed without and with i ntravenous contrast. FINDINGS: There is a 2.5 cm lesion in the posterior right lobe of the liver which demonstrates peripheral nodul ar enhancement and subsequent opacification characteristic of a liver hemangioma. Remainder the liver is unremarkable. No acute findings in the spleen, adrenals, kidneys or pancreas. No gallstones or biliary ductal or pa ncreatic ductal dilatation is present. No free fluid. Lesion adjacent to the lower left pericardium as seen on the coronal T2 weighted images and probably represents a small pericardial cyst. CONCLUSION: 1. 2.5 cm hemangioma posterior right lobe of the liver. 2. Pericardial lesion measuring up to 2 cm in diameter on the lower left side most characteristic of a small pericardial cyst. Jagdeep Moore MD on January 12, 2018 at 20:05 Board Certified Radiologist. This report was verified electronically.
--- NOTE | 2018-01-12 20:43 | EKG ---
Date Performed: 01/12/2018 Time Performed: 10:01:42 PTAGE: 52 years EKG: Sinus rhythm MODERATE INTRAVENTRICULAR CONDUCTION DELAY VOLTAGE CRITERIA FOR LVH ABNORMAL ECG PREVIOUS TRACING : 12/02/2017 18.37 Since the previous tracing, no significant change noted DOCTOR: Dylon Alfaro Interpretating Date/Time 01/18/2018 12:59:43
[2018-01-12] MEDS ORDERED: traZODone HCL 100 MG TAB PO SCH (21:00)
[2018-01-12] MEDS: PANTOPRAZOLE SOD 20 MG DELAYED RELEASE TAB PO SCH (22:41)
[2018-01-12] MEDS: DOCUSATE SODIUM 50 MG/SENNA 8.6 MG TAB PO SCH (22:41)
[2018-01-12] MEDS: SODIUM CHLORIDE 0.9% FLUSH 10 ML FLUSH IV FLUSH SCH (22:43)
[2018-01-12] MEDS: ACETAMINOPHEN/HYDROcodone 325 MG/10 MG TAB PO PRN (22:43)
[2018-01-13] VITALS: BP 160/76; PULSE 16; RESP 16; TEMP 98.2; O2SAT 98
[2018-01-13] MEDS: HYDROXYCHLOROQUINE SULFATE 200 MG TAB PO SCH ×2 (00:14→10:04)
[2018-01-13] MEDS: BUDESONIDE-FORMOTEROL 160/4.5 MCG INHALER INH SCH ×2 (00:14→10:03)
[2018-01-13 04:00] VITALS: BP 160/76; PULSE 70; RESP 16; TEMP 97.6; O2SAT 97
[2018-01-13 05:15] LABS: AUTOMATED NEUTROPHIL # 7.4 TH/MM3 (1.8-7.7); BASOPHIL # 0.1 TH/MM3 (0-0.2); BASOPHIL % 0.4 % (0.0-2.0); EOSINOPHIL % 0.2 % (0.0-4.0); HEMATOCRIT 38.4 % (35.0-46.0); HEMOGLOBIN 12.8 GM/DL (11.6-15.3); LYMPH % 31.3 % (9.0-44.0); LYMPHOCYTE # 3.6 TH/MM3 (1.0-4.8); MEAN CELL VOLUME 90.6 FL (80.0-100.0); MEAN CORPUSCULAR HEMOGLOBIN 30.2 PG (27.0-34.0); MEAN CORPUSCULAR HGB CONC 33.3 % (32.0-36.0); MONO % 3.8 % (0.0-8.0); MONOCYTE # 0.4 TH/MM3 (0-0.9); NEUT % 64.3 % (16.0-70.0); PLATELET COUNT 353 TH/MM3 (150-450); RED BLOOD COUNT 4.24 MIL/MM3 (4.00-5.30); RED CELL DISTRIBUTION WIDTH 14.1 % (11.6-17.2); WHITE BLOOD COUNT 11.6 TH/MM3 (4.0-11.0)
[2018-01-13 05:35] LABS: ALBUMIN 3.3 GM/DL (3.4-5.0); ALT (GPT) 15 U/L (10-53); AST (GOT) 9 U/L (15-37); BICARBONATE 28.7 MEQ/L (21.0-32.0); BLOOD UREA NITROGEN 13 MG/DL (7-18); CALCIUM 8.5 MG/DL (8.5-10.1); CHLORIDE 107 MEQ/L (98-107); CREATININE 0.71 MG/DL (0.50-1.00); GLOMERULAR FILTRATION RATE 104 ML/MIN (>89); GLUCOSE,RANDOM 95 MG/DL (74-106); SODIUM (NA) 142 MEQ/L (136-145)
[2018-01-13 05:39] LABS: ALKALINE PHOSPHATASE 82 U/L (45-117); TOTAL BILIRUBIN ADULT 0.2 MG/DL (0.2-1.0); TOTAL PROTEIN 7.6 GM/DL (6.4-8.2); TROPONIN I LESS THAN 0.02 NG/ML (0.02-0.05)
[2018-01-13] MEDS: ACETAMINOPHEN/HYDROcodone 325 MG/10 MG TAB PO PRN ×2 (06:19→10:14)
[2018-01-13 08:00] VITALS: BP 143/66; PULSE 75; RESP 16; TEMP 98.3; O2SAT 96
[2018-01-13] MEDS ORDERED: TIOTROPIUM BROMIDE 18 MCG INH INH SCH (09:00)
[2018-01-13] MEDS ORDERED: URSODIOL 500 MG PO SCH (09:00)
[2018-01-13] MEDS ORDERED: FOLIC ACID 1 MG TAB PO SCH (09:00)
[2018-01-13] MEDS: DOCUSATE SODIUM 50 MG/SENNA 8.6 MG TAB PO SCH (10:03)
[2018-01-13] MEDS: SODIUM CHLORIDE 0.9% FLUSH 10 ML FLUSH IV FLUSH SCH (10:03)
[2018-01-13] MEDS: PANTOPRAZOLE SOD 20 MG DELAYED RELEASE TAB PO SCH (10:03)
[2018-01-13] MEDS: ACYCLOVIR 800 MG TAB PO SCH ×2 (10:04→15:59)
--- NOTE | 2018-01-13 10:25 | HHI.HP ---
[facility] Service Family Medicine Primary Care Physician Shaheed Angel MD Admission Diagnosis R/O BRACHIAL PLEXOPATHY VS MASS Diagnoses: (1) Left shoulder pain Diagnosis: Principal (2) Mass near pericardium Diagnosis: Principal (3) Pulmonary nodules/lesions, multiple Diagnosis: Principal (4) Liver mass Diagnosis: Principal (5) COPD (chronic obstructive pulmonary disease) Diagnosis: Principal (6) Obstructive sleep apnea syndrome Diagnosis: Principal (7) Herpes Diagnosis: Principal (8) Insomnia Diagnosis: Principal (9) Rheumatoid arthritis Diagnosis: Principal (10) HX BENIGN NEOPLASM/BRAIN Diagnosis: Principal (11) FEN Diagnosis: Principal International Travel<30 Days: No Contact w/Intl Traveler<30days: No Known Affected Area: No History of Present Illness Ms. Iverson is a 52-year-old female with past medical history of meningioma and COPD who presented to the ED this morning for pain in her left shoulder. She stated that the pain started around 9 PM last night. She described the pain as 8/10 heavy sharp pain located in her left shoulder which radiated from left jaw to her shoulder to her back. This pain started years ago, but became worse suddenly last night. She states that the pain is off and on, but "hurts 24/7", nothing makes the pain better except meds but not her tramadol before admission. Upon chart review she had a left shoulder x-ray done in November 2017 which revealed chronic significant arthropathy of the acromioclavicular joint. she also reported a steroid injection done of that joint at least a month ago that did not help much. She is also experiencing a pressure-like chest pain and states that she was gasping for breath. She used her inhaler and CPAP to help with this. She also stated that she was so scared that she slept with her finger on her life alert just in case she needed emergency help. However, she waited until the morning and had her mom drive her to the hospital. her pain radiated from her shoulder to her neck and also her chest. she denies radiation down her arms. Has a brain tumor (meningioma). had brain surgery in 2000 to remove part of it. wrapped around main artery of brain. It is enlarging. Goes to [facility] in [place] for this. this am she feels much improved. she has basically her baseline pain in her shoulder. per her records she has a history of RA which could be contributing to this she does not have typical angina as she has no worsening pain with exertion Review of Systems Other Constitutional: COMPLAINS OF: Weight loss (236 to 213 over 3-4 months unintentionally), DENIES: Fever, Chills Eyes: COMPLAINS OF: Blurred vision, Double Vision Ears, nose, mouth, throat: DENIES: Throat pain Respiratory: COMPLAINS OF: Cough, Shortness of breath Cardiovascular: COMPLAINS OF: Chest pain, Palpitations Gastrointestinal: DENIES: Abdominal pain, Black stools, Bloody stools, Constipation, Diarrhea, Nausea, Vomiting Genitourinary: DENIES: Dysuria Musculoskeletal: DENIES: Muscle aches Integumentary: DENIES: Rash Neurologic: DENIES: Localized weakness, Paresthesias, Seizures Past Family Social History Past Medical History Meningioma COPD Hepatitis B Pre-diabetes RENU- uses CPAP Stomach ulcer herpes (never had an outbreak, but on acyclovir) Past Surgical History Brain surgery 2000 2 hip replacements tubal ligation foot surgery wisdom teeth extraction Allergies: Coded Allergies: No Known Allergies (Verified Adverse Reaction, Unknown, 01/12/18) Family History Mother- HTN, A fib Father- in early 60s, hole in heart Social History lives with her son in an apartment on disability for tumor No alcohol, no tobacco use, no illicit drug use 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 Physical Exam Vital Signs Vital Signs Date Time Temp Pulse Resp B/P (MAP) Pulse Ox O2 Delivery O2 Flow Rate FiO2 01/13/18 08:00 98.3 75 16 143/66 (91) 96 01/13/18 04:00 97.6 70 16 160/76 (104) 97 01/13/18 00:00 98.2 16 16 160/76 (104) 98 01/12/18 22:43 69 01/12/18 20:00 97.2 73 16 144/66 (92) 96 01/12/18 16:27 97.4 71 18 158/72 (100) 94 01/12/18 14:30 76 18 162/73 (102) 98 Room Air 01/12/18 12:30 76 18 159/74 (102) 97 Room Air 01/12/18 10:30 76 16 138/74 (95) 100 Room Air 01/12/18 10:26 18 98 Room Air Physical Exam Constitutional: COMPLAINS OF: Weight loss (236 to 213 over 3-4 months unintentionally), DENIES: Fever, Chills Eyes: COMPLAINS OF: Blurred vision, Double Vision Ears, nose, mouth, throat: DENIES: Throat pain Respiratory: COMPLAINS OF: Cough, Shortness of breath Cardiovascular: COMPLAINS OF: Chest pain, Palpitations Gastrointestinal: DENIES: Abdominal pain, Black stools, Bloody stools, Constipation, Diarrhea, Nausea, Vomiting Genitourinary: DENIES: Dysuria Musculoskeletal: DENIES: Muscle aches Integumentary: DENIES: Rash Neurologic: DENIES: Localized weakness, Paresthesias, Seizures Laboratory Laboratory Tests Test 01/12/18 10:35 01/13/18 00:19 01/13/18 03:53 White Blood Count 14.4 11.6 Red Blood Count 4.28 4.24 Hemoglobin 12.9 12.8 Hematocrit 38.7 38.4 Mean Corpuscular Volume 90.3 90.6 Mean Corpuscular Hemoglobin 30.2 30.2 Mean Corpuscular Hemoglobin Concent 33.4 33.3 Red Cell Distribution Width 13.8 14.1 Platelet Count 319 353 Mean Platelet Volume 7.8 8.0 Neutrophils (%) (Auto) 65.7 64.3 Lymphocytes (%) (Auto) 29.8 31.3 Monocytes (%) (Auto) 3.4 3.8 Eosinophils (%) (Auto) 0.2 0.2 Basophils (%) (Auto) 0.9 0.4 Neutrophils # (Auto) 9.4 7.4 Lymphocytes # (Auto) 4.3 3.6 Monocytes # (Auto) 0.5 0.4 Eosinophils # (Auto) 0.0 0.0 Basophils # (Auto) 0.1 0.1 CBC Comment DIFF FINAL DIFF FINAL Differential Comment Prothrombin Time 10.1 Prothromb Time International Ratio 1.0 Activated Partial Thromboplast Time 24.7 Blood Urea Nitrogen 13 13 Creatinine 0.74 0.71 Random Glucose 73 95 Total Protein 7.8 7.6 Albumin 3.4 3.3 Calcium Level 8.6 8.5 Alkaline Phosphatase 89 82 Aspartate Amino Transf (AST/SGOT) 8 9 Alanine Aminotransferase (ALT/SGPT) 17 15 Total Bilirubin 0.2 0.2 Sodium Level 140 142 Potassium Level 3.4 3.9 Chloride Level 105 107 Carbon Dioxide Level 29.0 28.7 Anion Gap 6 6 Estimat Glomerular Filtration Rate 99 104 Total Creatine Kinase 41 Troponin I LESS THAN 0.02 LESS THAN 0.02 LESS THAN 0.02 B-Type Natriuretic Peptide 14 Lipase 162 Result Diagram: 01/13/18 0353 01/13/18 0353 Imaging Last Impressions Cervical Spine CT 01/12/1854 Signed Impressions: Service Date/Time: Friday, January 12, 2018 11:58 - CONCLUSION: No acute disease. Catarino Silva MD Upper Extremity Ultrasound 01/12/1850 Signed Impressions: Service Date/Time: Friday, January 12, 2018 10:17 - CONCLUSION: No evidence of deep venous thrombosis within the left upper extremity. Shade Razo MD Aorta CTA 01/12/1840 Signed Impressions: Service Date/Time: Friday, January 12, 2018 12:08 - CONCLUSION: 1. No aneurysm or dissection is seen. 2. 2 pulmonary nodules seen in the right middle lobe and right lower lobe. 3. 1.7 cm mass seen adjacent to the posterior pericardium in the left lower lobe region. This is nonspecific. It could represent a pericardial cyst. A pulmonary mass cannot be excluded. One could further evaluate this with the PET FDG study to determine if it is metabolically active or not. If it is not metabolically active, it could be followed. 4. 2.7 cm hepatic mass. This could be further evaluated with an MRI examination of the abdomen with contrast. A MRI examination of the abdomen may also visualized the mass in the left lower chest/pericardial region. Catarino Silva MD Caprini VTE Risk Assessment Caprini VTE Risk Assessment: Mod/High Risk (score >= 2) Caprini Risk Assessment Model Point Value = 1 Point Value = 2 Point Value = 3 Point Value = 5 Age 41-60 Minor surgery BMI > 25 kg/m2 Swollen legs Varicose veins or History of unexplained or recurrent spontaneous Oral contraceptives or hormone replacement Sepsis (< 1 month) Serious lung disease, including pneumonia (< 1 month) Abnormal pulmonary function Acute myocardial infarction Congestive heart failure (< 1 month) History of inflammatory bowel disease Medical patient at bed rest Age 61-74 Arthroscopic surgery Major open surgery (> 45 min) Laparoscopic surgery (> 45 min) Malignancy Confined to bed (> 72 hours) Immobilizing plaster cast Central venous access Age >= 75 History of VTE Family history of VTE Factor V Leiden Prothrombin [id number] Lupus anticoagulant Anticardiolipin antibodies Elevated serum homocysteine Heparin-induced thrombocytopenia Other congenital or acquired thrombophilia Stroke (< 1 month) Elective arthroplasty Hip, pelvis, or leg fracture Acute spinal cord injury (< 1 month) Prophylaxis Regimen Total Risk Factor Score Risk Level Prophylaxis Regimen 0-1 Low Early ambulation 2 Moderate Order ONE of the following: *Sequential Compression Device (SCD) *Heparin 5000 units SQ BID 3-4 Higher Order ONE of the following medications: *Heparin 5000 units SQ TID *Enoxaparin/Lovenox 40 mg SQ daily (WT < 150 kg, CrCl > 30 mL/min) *Enoxaparin/Lovenox 30 mg SQ daily (WT < 150 kg, CrCl > 10-29 mL/min) *Enoxaparin/Lovenox 30 mg SQ BID (WT < 150 kg, CrCl > 30 mL/min) AND/OR *Sequential Compression Device (SCD) 5 or more Highest Order ONE of the following medications: *Heparin 5000 units SQ TID (Preferred with Epidurals) *Enoxaparin/Lovenox 40 mg SQ daily (WT < 150 kg, CrCl > 30 mL/min) *Enoxaparin/Lovenox 30 mg SQ daily (WT < 150 kg, CrCl > 10-29 mL/min) *Enoxaparin/Lovenox 30 mg SQ BID (WT < 150 kg, CrCl > 30 mL/min) AND *Sequential Compression Device (SCD) Assessment and Plan Assessment and Plan 52-year-old -Russian female with a past medical history of COPD and meningioma presenting to the ED with left shoulder pain she is much better with her pain today Problem List: (1) Left shoulder pain ICD Codes: M25.512 - Left shoulder pain Status: Acute Plan: Patient with left shoulder pain of a few years duration. Left shoulder x -ray conducted in November 2017 showed chronic significant arthropathy of the acromioclavicular joint. This pain acutely worsened overnight with pain radiating from the jaw to the shoulder to the back with significant shortness of breath. Left upper extremity ultrasound on admission showed no DVT Cervical spine CT was negative Could be musculoskeletal versus cardiac versus diaphragmatic referred pain versus brachial plexopathy -Patient given total of 6 mg of Dilaudid in ED -Troponin negative -next troponin to be drawn at 1635 every 6h x2 with responding EKG -EKG on admission showed normal sinus rhythm with LVH she does not have typical anginal chest pain and has no worsening on exertion (2) Mass near pericardium Status: Acute Plan: Aorta CTA on admission showed a 1.7 cm mass at the inferior medial left lower lobe abutting the pericardium. A PET FDG scan was recommended by radiology along with the MRI abdomen which also could visualize this mass. Needs to be differentiated whether it is a pericardial mass or pulmonary mass. -Will consider oncology consultation for this and other masses found on imaging she can only get a PET as an outpatient. she will need to follow up with Oncology as an outpt. can see if she can see Oncology as an inpt vs an outpt (3) Pulmonary nodules/lesions, multiple ICD Codes: R91.8 - Other nonspecific abnormal finding of lung field Status: Acute Plan: Aorta CTA on admission showed 2 pulmonary nodules seen in the right middle lobe and right lower lobe. Both measured 0.5 cm. Due to the size and incidental finding in nature may be benign. (4) Liver mass ICD Codes: R16.0 - Hepatomegaly, not elsewhere classified Status: Acute Plan: Aorta CTA on admission showed 2.7 cm hepatic mass. Recommendation by radiologist just for a MRI with contrast of the abdomen. -Upon chart review on [place], patient has a history of hepatic hemangioma. This may be the finding on CTA. -MRI abdomen with contrast pending (5) COPD (chronic obstructive pulmonary disease) ICD Codes: J44.9 - Chronic obstructive pulmonary disease Status: Chronic Plan: Continue at home medications of Advair and Spiriva inhalers (6) Obstructive sleep apnea syndrome ICD Codes: G47.33 - Obstructive sleep apnea syndrome Status: Chronic Plan: Patient uses CPAP at home -Ordered BiPAP to use while in the hospital (7) Herpes ICD Codes: B00.9 - Herpes Status: Chronic Plan: Continue at home acyclovir (8) Insomnia ICD Codes: G47.00 - Insomnia Status: Chronic Plan: Continue at home medications of trazodone 250mg po HS and Ambien 10mg po HS PRN (9) Rheumatoid arthritis ICD Codes: M06.9 - Rheumatoid arthritis Status: Chronic Plan: Continue at home medication of hydroxychloroquine 200mg BID and folic acid (10) HX BENIGN NEOPLASM/BRAIN Status: Chronic Plan: Pt has a hx of meningioma. Continue at home Cabergoline for hyperprolactinemia (11) FEN Status: Acute Plan: Fluids: tolerating PO Electrolytes: monitor and replete as needed Nutrition: regular diet DVT Prophylaxis: Early ambulation. Lovenox 40mg subQ q24hr GI Prophylaxis: continue at home omeprazole Problem Qualifiers (1) Left shoulder pain: Qualified Codes: M25.512 - Pain in left shoulder; G89.29 - Other chronic pain (2) COPD (chronic obstructive pulmonary disease): Qualified Codes: J44.9 - Chronic obstructive pulmonary disease, unspecified (3) Rheumatoid arthritis: Miesha Munguia MD Jan 13, 2018 10:25
[2018-01-13 11:47] VITALS: BP 125/60; PULSE 83; RESP 18; TEMP 97.8; O2SAT 94
--- NOTE | 2018-01-13 13:48 | HHI.DCPOC ---
Discharge Care Plan Diagnosis: (1) Mass near pericardium (2) Pulmonary nodules/lesions, multiple (3) Liver mass (4) Left shoulder pain Goals to Promote Your Health * To prevent worsening of your condition and complications * To maintain your health at the optimal level Directions to Meet Your Goals Take your medications as prescribed Follow your dietary instruction Follow activity as directed Keep your appointments as scheduled Take your immunizations and boosters as scheduled If your symptoms worsen call your PCP, if no PCP go to Urgent Care Center or Emergency Room Smoking is Dangerous to Your Health. Avoid second hand smoke Call the 24-hour hour crisis hotline for domestic abuse at Verena Carrasco MD R1 Jan 13, 2018 13:48
[2018-01-13] MEDS ORDERED: TRAM50TA PO (15:12)
[2018-01-13] MEDS ORDERED: MEDR4PAK PO (15:12)
[2018-01-13] MEDS ORDERED: predniSONE 50 MG TAB PO ONE (16:00)
[2018-01-13] MEDS: ENOXAPARIN SODIUM 40 MG/0.4 ML SYRINGE SQ SCH (16:00)
[2018-01-13 16:36] VITALS: BP 135/70; PULSE 83; RESP 18; TEMP 98.7; O2SAT 97
--- NOTE | 2018-01-13 18:50 | EKG ---
Date Performed: 01/12/2018 Time Performed: 17:24:23 PTAGE: 52 years EKG: Sinus rhythm NORMAL ECG Since the PREVIOUS TRACING , no significant change noted PREVIOUS TRACIN01/12/2018 @1109 DOCTOR: Chapo Champagne Interpretating Date/Time 01/13/2018 18:46:51
--- NOTE | 2018-01-13 18:51 | EKG ---
Date Performed: 01/12/2018 Time Performed: 22:52:17 PTAGE: 52 years EKG: Sinus rhythm VOLTAGE CRITERIA FOR LVH ABNORMAL ECG Since the PREVIOUS TRACING , no significant change noted PREVIOUS TRACIN01/12/2018 @1724 DOCTOR: Chapo Champagne Interpretating Date/Time 01/13/2018 18:47:30
[2018-01-16] MEDS ORDERED: Cabergoline 0.5 MG PO SCH (09:00)
== END 2018-01-13 17:41 | disposition home or self-care (01) ==
LOC: NEPD 09:21 → UNDOADMOB 13:50 → NEDA 13:50 → NEDH 19:46 → NEPGCP 01-13 10:51 → NEDH 01-13 10:51 → UNDODISOB 01-13 17:41
PROVIDERS: ADMIT Family Medicine; ATTEND Family Medicine
DX: M25.512 Pain in left shoulder (principal); R91.8 Other nonspecific abnormal finding of lung field; R16.0 Hepatomegaly, not elsewhere classified; D72.828 Other elevated white blood cell count; D18.03 Hemangioma of intra-abdominal structures; J44.9 Chronic obstructive pulmonary disease, unspecified; G47.33 Obstructive sleep apnea (adult) (pediatric); B00.9 Herpesviral infection, unspecified; G47.00 Insomnia, unspecified; M06.9 Rheumatoid arthritis, unspecified; E22.1 Hyperprolactinemia; R07.9 Chest pain, unspecified; B19.10 Unspecified viral hepatitis B without hepatic coma; R73.03 Prediabetes; R94.31 Abnormal electrocardiogram [ECG] [EKG]; E78.00 Pure hypercholesterolemia, unspecified; E03.9 Hypothyroidism, unspecified; K74.60 Unspecified cirrhosis of liver; F41.9 Anxiety disorder, unspecified; H91.92 Unspecified hearing loss, left ear; M19.90 Unspecified osteoarthritis, unspecified site; Z79.899 Other long term (current) drug therapy; Z86.011 Personal history of benign neoplasm of the brain
CPT/HCPCS: 71275; 72125; 74174; 74183; 80053; 82550; 83690; 83880; 84484; 85025; 85610; 85730; 93005; 93971; 96361; 96374; 96375; 99291; A9579; G0378; J1170; J1650; J2270; J2405; J7040; J7512; Q9967

== ENCOUNTER → 2018-02-08 | Outpatient (CLI) | payer MEDICARE, MEDICAID ==
[~2018-02-08] MED LIST changes: +MEDR4PAK PO
[2018-02-08 14:16] LABS: AUTOMATED NEUTROPHIL # 4.5 TH/MM3 (1.8-7.7); BASOPHIL # 0.1 TH/MM3 (0-0.2); BASOPHIL % 1.1 % (0.0-2.0); EOSINOPHIL # 0.1 TH/MM3 (0-0.4); EOSINOPHIL % 1.1 % (0.0-4.0); HEMOGLOBIN 12.9 GM/DL (11.6-15.3); LYMPH % 31.9 % (9.0-44.0); LYMPHOCYTE # 2.3 TH/MM3 (1.0-4.8); MEAN CELL VOLUME 90.8 FL (80.0-100.0); MEAN CORPUSCULAR HEMOGLOBIN 30.9 PG (27.0-34.0); MEAN CORPUSCULAR HGB CONC 34.1 % (32.0-36.0); MEAN PLATELET VOLUME 7.9 FL (7.0-11.0); MONO % 2.4 % (0.0-8.0); MONOCYTE # 0.2 TH/MM3 (0-0.9); NEUT % 63.5 % (16.0-70.0); PLATELET COUNT 299 TH/MM3 (150-450); RED BLOOD COUNT 4.18 MIL/MM3 (4.00-5.30); RED CELL DISTRIBUTION WIDTH 13.5 % (11.6-17.2); WHITE BLOOD COUNT 7.1 TH/MM3 (4.0-11.0)
[2018-02-08 14:38] LABS: ALBUMIN 3.5 GM/DL (3.4-5.0); ALT (GPT) 25 U/L (10-53); AST (GOT) 19 U/L (15-37); BICARBONATE 28.4 MEQ/L (21.0-32.0); BLOOD UREA NITROGEN 12 MG/DL (7-18); C-REACTIVE PROTEIN 1.62 MG/DL (0.00-0.30); CALCIUM 8.8 MG/DL (8.5-10.1); CHLORIDE 104 MEQ/L (98-107); GLOMERULAR FILTRATION RATE 91 ML/MIN (>89); GLUCOSE,FASTING 113 MG/DL (74-99); SODIUM (NA) 141 MEQ/L (136-145)
[2018-02-08 14:40] LABS: WESTERGREN SEDIMENTATION RATE 48 mm/hr (0-30)
[2018-02-08 14:41] LABS: ALKALINE PHOSPHATASE 87 U/L (45-117); TOTAL BILIRUBIN ADULT 0.3 MG/DL (0.2-1.0)
[2018-02-11 16:21] LABS: ANA PATTERN SPECKLED
== END ==
LOC: CLAB 13:52
DX: R76.8 Other specified abnormal immunological findings in serum (principal); M35.00 Sjogren syndrome, unspecified
CPT/HCPCS: 36415; 80053; 85025; 85652; 86038; 86039; 86140